=== PATIENT | female | born 1995 | race African-American/Black ===

== ENCOUNTER 2017-01-22 16:13 | Emergency (ER) | payer MEDICAID ==
[2017-01-22 17:04] LABS: AMORPHOUS SEDIMENT,URINE TRACE /HPF; APPEARANCE,URINE SLIGHTLY-CLOUDY; BILIRUBIN,URINE NEGATIVE (NEGATIVE); GLUCOSE, URINE NEGATIVE (NEGATIVE); KETONES,URINE 20 mg/dL (NEGATIVE); LEUKOCYTE ESTERASE,URINE NEGATIVE (NEGATIVE); NITRITE,URINE NEGATIVE (NEGATIVE); PROTEIN,URINE NEGATIVE (NEGATIVE); URINE SPECIFIC GRAVITY 1.015; UROBILINOGEN,URINE NEGATIVE mg/dL (<2.0)
--- NOTE | 2017-01-22 17:33 | RADIOLOGY REPORT (SQ) ---
EXAM DESCRIPTION: FOREARM LEFT COMPLETED DATE/TIME: 01/22/2017 5:05 pm REASON FOR STUDY: fell off roof/pain COMPARISON: None. NUMBER OF VIEWS: Two views. TECHNIQUE: Two radiographic images acquired of the left forearm, including elbow and wrist in at [address] one projection. LIMITATIONS: None. FINDINGS: MINERALIZATION: Normal. BONES: No acute fracture. No worrisome bone lesions. SOFT TISSUES: No obvious swelling or foreign body. OTHER: No other significant finding. IMPRESSION: NEGATIVE STUDY OF THE LEFT FOREARM. NO RADIOGRAPHIC EVIDENCE OF ACUTE INJURY. TECHNICAL DOCUMENTATION: JOB ID: [id number] [email or web address]- All Rights Reserved
--- NOTE | 2017-01-22 17:34 | RADIOLOGY REPORT (SQ) ---
EXAM DESCRIPTION: T SPINE AP/LAT COMPLETED DATE/TIME: 01/22/2017 5:05 pm REASON FOR STUDY: fell off roof/pain COMPARISON: None. NUMBER OF VIEWS: Two views. TECHNIQUE: AP and lateral radiographic images acquired of the thoracic spine. LIMITATIONS: None. FINDINGS: MINERALIZATION: Normal. ALIGNMENT: Normal. No scoliosis. VERTEBRAE: No fracture or bone lesion. Maintained height, normal segmentation. DISCS: No significant loss of height or significant narrowing. No large osteophytes. HARDWARE: None in the spine. MEDIASTINUM AND SOFT TISSUES: There is no abnormal paraspinous soft tissue swelling. VISUALIZED LUNG PERKINS: Clear. OTHER: Included ribs are normal IMPRESSION: NO SIGNIFICANT RADIOGRAPHIC FINDING IN THE THORACIC SPINE. TECHNICAL DOCUMENTATION: JOB ID: [id number] [employer]- All Rights Reserved
--- NOTE | 2017-01-22 17:35 | RADIOLOGY REPORT (SQ) ---
EXAM DESCRIPTION: CERV SP 3 VIEW OR LESS COMPLETED DATE/TIME: 01/22/2017 5:05 pm REASON FOR STUDY: fell off roof/pain COMPARISON: None. NUMBER OF VIEWS: Three views. TECHNIQUE: AP, lateral and odontoid radiographic images acquired of the cervical spine. LIMITATIONS: None. FINDINGS: MINERALIZATION: Normal. ALIGNMENT: There is straightening of the cervical spine. VERTEBRAE: Vertebral bodies of normal height. DISCS: No significant disc space narrowing. No large osteophytes. HARDWARE: None in the spine. SOFT TISSUES: No masses or calcifications. Lung apices clear. OTHER: No other significant finding. IMPRESSION: There is straightening of the cervical spine. This may be positional. This could indic ate muscle spasm. TECHNICAL DOCUMENTATION: JOB ID: [id number] [employer]- All Rights Reserved
[2017-01-22 17:44] VITALS: BP 135/77
--- NOTE | 2017-01-22 17:46 | ER Document Report ---
ED General - General Chief Complaint: Arm Injury Stated Complaint: FALL/HEAD,BACK AND ARM PAIN Time Seen by Provider: 01/22/17 16:36 Notes: Patient states she fell off of a one-story roof about 2 hours before arrival. Planes of neck pain upper back pain and left forearm pain. She states she landed on her left side. She states the pain is constant and moderate to severe. It is worse with movement and better with rest. The pain in her neck and back to radiate down into the low back. She denies any loss of phosphorus. No abdominal pain or chest pain. She has had no vomiting. She did not believe that she is currently . TRAVEL OUTSIDE OF THE [place] IN LAST 30 DAYS: No - Related Data Allergies/Adverse Reactions: No Known Allergies Allergy (Verified 06/14/16 15:55) Past Medical History - General Information source: Patient - Social History Smoking Status: Current Some Day Smoker Chew tobacco use (# tins/day): No Frequency of alcohol use: None Drug Abuse: None Family History: Reviewed & Not Pertinent Pulmonary Medical History: Reports: Hx Asthma Past Surgical History: Reports: Hx Orthopedic Surgery - knee, Hx Tonsillectomy - Immunizations Immunizations up to date: Yes Hx Diphtheria, Pertussis, Tetanus Vaccination: Yes Review of Systems - Review of Systems Constitutional: denies: Chills, Fever Cardiovascular: denies: Chest pain, Palpitations Respiratory: denies: Cough, Short of breath Gastrointestinal: denies: Abdominal pain, Vomiting -: Yes All other systems reviewed and negative Physical Exam - Vital signs Vitals: Temp Pulse Resp BP Pulse Ox 97.5 F 75 19 138/93 H 100 01/22/17 16:36 01/22/17 16:36 01/22/17 16:36 01/22/17 16:36 01/22/17 16:36 Interpretation: Hypertensive - General General appearance: Appears well, Alert In distress: None - HEENT Head: Normocephalic, Atraumatic Eyes: Normal Conjunctiva: Normal Pupils: PERRL Ears: Normal External canal: Normal Tympanic membrane: Normal Nasal: Normal. No: Bloody discharge Mouth/Lips: Normal Mucous membranes: Moist Pharynx: Normal. No: Erythema, Exudate Neck: Other - Since posterior C-spine is diffusely tender to palpation. - Respiratory Respiratory status: No respiratory distress Chest status: Nontender Breath sounds: Normal Chest palpation: Normal - Cardiovascular Rhythm: Regular Heart sounds: Normal auscultation Murmur: No - Abdominal Inspection: Normal Distension: No distension Bowel sounds: Normal Tenderness: Nontender Organomegaly: No organomegaly - Back Back: Tender - pt has diffuse upper T-spine tenderness to palpation. No step- off or deformity. - Extremities General upper extremity: Normal inspection General lower extremity: Normal inspection, Nontender Forearm: Tender Wrist: Tender, Limited ROM - Neurological Neuro grossly intact: Yes Cognition: Normal Orientation: AAOx4 Speech: Normal - Psychological Associated symptoms: Normal affect, Normal mood - Skin Skin Temperature: Warm Skin Moisture: Dry Skin Color: Normal Course - Vital Signs Vital signs: Temp Pulse Resp BP Pulse Ox 97.5 F 75 19 138/93 H 100 01/22/17 16:36 01/22/17 16:36 01/22/17 16:36 01/22/17 16:36 01/22/17 16:36 - Laboratory Laboratory results interpreted by me: 01/22/17 16:46 Urine Ketones 20 H - Diagnostic Test Radiology reviewed: Pending, Image reviewed, Reports reviewed Discharge - Discharge Clinical Impression: Cervical strain, acute, Acute thoracic myofascial strain Condition: Stable Disposition: HOME, SELF-CARE Instructions: Muscle Strain ([facility]), Neck Injury (Cervical Strain) ([facility]), Upper Back Strain ([facility]) Additional Instructions: Please call Dr. Arriaga as soon as possible to arrange reevaluation. Prescriptions: Hydrocodone/Acetaminophen [[place] 5-325 mg Tablet] 1 tab PO QID PRN #10 tablet PRN Reason: Forms: Elevated Blood Pressure Referrals: ROBBIE ARRIAGA MD [ACTIVE STAFF] - Follow up as needed
== END 2017-01-22 18:00 | disposition home or self-care (01) ==
LOC: ER 16:13
DX: S16.1XXA Strain of muscle, fascia and tendon at neck level, initial encounter (principal); S29.012A Strain of muscle and tendon of back wall of thorax, initial encounter; W17.89XA Other fall from one level to another, initial encounter; F17.200 Nicotine dependence, unspecified, uncomplicated; M79.632 Pain in left forearm
CPT/HCPCS: 99284; 81025; 81001; 72040; 73090; 72070; L0120 ×2; L3908

== ENCOUNTER → 2017-12-03 | Outpatient (CLI) | payer MEDICAID ==
[2017-12-03 17:47] LABS: BACTERIA (WET MOUNT) 4+ BACTERIA SEEN; RBCS (WET MOUNT) 4+ RBCS SEEN; T.VAGINALIS (WET MOUNT) NO TRICHOMONAS SEEN; WBCS (WET MOUNT) RARE WBCS SEEN; YEAST (WET MOUNT) NO YEAST SEEN
[2017-12-03 19:08] LABS: CHLAM PCR NOT DETECTED (NOT DETECT); GON PCR NOT DETECTED (NOT DETECT)
== END ==
LOC: LAB 17:19
PROVIDERS: ATTEND Nurse Practitioner Family
DX: N89.8 Other specified noninflammatory disorders of vagina (principal); R30.0 Dysuria
CPT/HCPCS: 87086; 87088; 87186; 87210; 87491; 87591

== ENCOUNTER 2017-12-26 19:46 | Emergency (ER) | payer MEDICAID ==
--- NOTE | 2017-12-26 20:21 | ER Document Report ---
ED Medical Screen (RME) - General Chief Complaint: Abdominal Cramping Stated Complaint: ABDOMINAL PAIN Time Seen by Provider: 12/26/17 20:18 Mode of Arrival: Ambulatory Information source: Patient Notes: PT C/O ABDOMINAL PAIN FOR 2 WEEKS, THOUGHT HER MENSES WOULD START, IT DIDN'T. WORRIED , SEXUALLY ACTIVE, ONE PARTNER, NO CONTROL. . C/O NAUSEATED, DIZZY. NO HOME TEST TAKEN. ALSO C/O VAGINAL AREA IRRITATED , NO DYSURIA, REPORTS VAGINAL DISCHARGE, RECENT BV. TRAVEL OUTSIDE OF THE [place] IN LAST 30 DAYS: No - Related Data Allergies/Adverse Reactions: No Known Allergies Allergy (Verified 06/14/16 15:55) Past Medical History Pulmonary Medical History: Reports: Hx Asthma Past Surgical History: Reports: Hx Orthopedic Surgery - knee, Hx Tonsillectomy - Immunizations Immunizations up to date: Yes Hx Diphtheria, Pertussis, Tetanus Vaccination: Yes Physical Exam - Vital signs Vitals: Temp Pulse Resp BP Pulse Ox 98.7 F 87 20 118/61 100 12/26/17 20:05 12/26/17 20:05 12/26/17 20:05 12/26/17 20:05 12/26/17 20:05 Course - Vital Signs Vital signs: Temp Pulse Resp BP Pulse Ox 98.7 F 87 20 118/61 100 12/26/17 20:05 12/26/17 20:05 12/26/17 20:05 12/26/17 20:05 12/26/17 20:05 Doctor's Discharge - Discharge Referrals: VIK SYED [email or web address] [Primary Care Provider] - Follow up as needed
[2017-12-26 21:06] LABS: APPEARANCE,URINE CLEAR; BILIRUBIN,URINE NEGATIVE (NEGATIVE); COLOR,URINE STRAW; GLUCOSE, URINE NEGATIVE (NEGATIVE); KETONES,URINE NEGATIVE (NEGATIVE); LEUKOCYTE ESTERASE,URINE NEGATIVE (NEGATIVE); NITRITE,URINE NEGATIVE (NEGATIVE); PROTEIN,URINE NEGATIVE (NEGATIVE); URINE SPECIFIC GRAVITY 1.008; UROBILINOGEN,URINE NEGATIVE mg/dL (<2.0)
[2017-12-26 21:48] LABS: ABSOLUTE EOSINOPHILS # (AUTO) 0.1 10^3/uL (0.0-0.6); ABSOLUTE LYMPHOCYTES (AUTO) 3.1 10^3/uL (0.5-4.7); ABSOLUTE MONOCYTES (AUTO) 0.8 10^3/uL (0.1-1.4); ABSOLUTE NEUT (AUTO) 6.5 10^3/uL (1.7-8.2); BASOPHILS % (AUTO) 0.2 % (0-2); EOSINOPHILS % (AUTO) 0.8 % (0-6); HEMATOCRIT 39.2 % (36.0-47.0); HEMOGLOBIN 13.1 g/dL (12.0-15.5); LYMPHOCYTES % (AUTO) 29.8 % (13-45); MEAN CORPUSCULAR HEMOGLOBIN 28.7 pg (27.0-33.4); MEAN CORPUSCULAR HGB CONC 33.4 g/dL (32.0-36.0); MEAN CORPUSCULAR VOLUME 86 fl (80-97); MONOCYTES % (AUTO) 7.3 % (3-13); PLATELET COUNT 272 10^3/uL (150-450); RED BLOOD COUNT 4.56 10^6/uL (3.72-5.28); RED CELL DISTRIBUTION WIDTH 13.4 % (11.5-14.0); SEGMENTED NEUTROPHILS % (AUTO) 61.9 % (42-78); TOTAL CELLS COUNTED % (AUTO) 100 %; WHITE BLOOD COUNT 10.4 10^3/uL (4.0-10.5)
[2017-12-26 21:57] LABS: ALANINE AMINOTRANSFERASE 20 U/L (9-52); ALBUMIN 4.3 g/dL (3.5-5.0); ALKALINE PHOSPHATASE 54 U/L (38-126); ANION GAP 9 (5-19); ASPARTATE AMINO TRANSFERASE 19 U/L (14-36); BILIRUBIN,DIRECT 0.3 mg/dL (0.0-0.4); BILIRUBIN,TOTAL 0.3 mg/dL (0.2-1.3); BLOOD UREA NITROGEN 14 mg/dL (7-20); CALCIUM 9.6 mg/dL (8.4-10.2); CARBON DIOXIDE 27 mmol/L (22-30); CHLORIDE 106 mmol/L (98-107); GLUCOSE 78 mg/dL (75-110); POTASSIUM 4.4 mmol/L (3.6-5.0); SODIUM 141.7 mmol/L (137-145); TOTAL PROTEIN 7.6 g/dL (6.3-8.2)
[2017-12-26 22:30] LABS: CHLAM PCR NOT DETECTED (NOT DETECT); GON PCR NOT DETECTED (NOT DETECT)
--- NOTE | 2017-12-26 23:28 | ER Document Report ---
ED GI/ - General Chief Complaint: Abdominal Cramping Stated Complaint: ABDOMINAL PAIN Time Seen by Provider: 12/26/17 20:18 Mode of Arrival: Ambulatory Notes: The patient is a 22-year-old female who presents with several weeks of lower abdominal cramping and she is two weeks late for her period. She is also having vaginal irritation and some nausea. She is concerned she is , but did not take a home test. She finished a course of Flagyl for bacterial vaginosis last month. She denies diarrhea, constipation, fevers, dysuria or vomiting. TRAVEL OUTSIDE OF THE [place] IN LAST 30 DAYS: No - Related Data Allergies/Adverse Reactions: No Known Allergies Allergy (Verified 06/14/16 15:55) Past Medical History - General Information source: Patient - Social History Smoking Status: Unknown if Ever Smoked Family History: Reviewed & Not Pertinent Pulmonary Medical History: Reports: Hx Asthma Past Surgical History: Reports: Hx Orthopedic Surgery - knee, Hx Tonsillectomy - Immunizations Immunizations up to date: Yes Hx Diphtheria, Pertussis, Tetanus Vaccination: Yes Review of Systems - Review of Systems Notes: REVIEW OF SYSTEMS: CONSTITUTIONAL: -fevers, -chills EENT: -eye pain, -difficulty swallowing, -nasal congestion CARDIOVASCULAR: -chest pain, -syncope. RESPIRATORY: -cough, -SOB GASTROINTESTINAL: +lower abdominal cramping, +nausea, -vomiting, -diarrhea GENITOURINARY: +vaginal irritation, -dysuria, -hematuria MUSCULOSKELETAL: -back pain, -neck pain SKIN: -rash or skin lesions. HEMATOLOGIC: -easy bruising or bleeding. LYMPHATIC: -swollen, enlarged glands. NEUROLOGICAL: -altered mental status or loss of consciousness, -headache, - neurologic symptoms PSYCHIATRIC: -anxiety, -depression. ALL OTHER SYSTEMS REVIEWED AND NEGATIVE. Physical Exam - Vital signs Vitals: Temp Pulse Resp BP Pulse Ox 98.7 F 87 20 118/61 100 12/26/17 20:05 12/26/17 20:05 12/26/17 20:05 12/26/17 20:05 12/26/17 20:05 - Notes Notes: PHYSICAL EXAMINATION: GENERAL: Well-appearing, well-nourished and in no acute distress. HEAD: Atraumatic, normocephalic. EYES: Pupils equal round and reactive to light, extraocular movements intact, sclera anicteric, conjunctiva are normal. ENT: nares patent, oropharynx clear without exudates. Moist mucous membranes. NECK: Normal range of motion, supple without lymphadenopathy LUNGS: Breath sounds clear to auscultation bilaterally and equal. No wheezes rales or rhonchi. HEART: Regular rate and rhythm without murmurs ABDOMEN: Soft, nontender, normoactive bowel sounds. No guarding, no rebound. No masses appreciated. (Chaperoned by SANDIE Alba): Non-tender uterus and adnexa. Small amount of whitish discharge. No CMT. EXTREMITIES: Normal range of motion, no pitting or edema. No cyanosis. NEUROLOGICAL: Cranial nerves grossly intact. Normal speech, normal gait. Normal sensory and motor exams. PSYCH: Normal mood, normal affect. SKIN: Warm, Dry, normal turgor, no rashes or lesions noted. Course - Re-evaluation Re-evalutation: Patient appears very well and has absolutely no tenderness on abdominal exam or pelvic exam. She does have bacterial vaginosis on wet mount and will treat her with Flagyl. She is not . Instructed her follow-up with her [employer] ATTENDANT. Also told her to always use condoms. - Vital Signs Vital signs: Temp Pulse Resp BP Pulse Ox 98.7 F 87 20 118/61 100 12/26/17 20:05 12/26/17 20:05 12/26/17 20:05 12/26/17 20:05 12/26/17 20:05 - Laboratory Result Diagrams: 12/26/17 21:18 12/26/17 21:18 Discharge - Discharge Clinical Impression: Bacterial vaginosis Condition: Stable Disposition: HOME, SELF-CARE Additional Instructions: Vaginosis, Bacterial Your exam shows you have bacterial vaginosis. This condition is due to an overgrowth of bacteria in the vagina. Symptoms may include vaginal itching or pain, a smelly discharge, and sometimes burning with urination. Normally this is not transmitted by sexual contact. Vaginosis can be treated with oral or topical antibiotics. Metronidazole ( Flagyl) pills are usually effective. Topical vaginal creams include Cleocin and Metro-Gel. You should avoid sexual contact until your symptoms are all better. Call the doctor if you develop pelvic pain, fever, or problems with urination, or if you don't improve as expected. Prescriptions: Metronidazole [Flagyl 500 mg Tablet] 500 mg PO Q8H #21 tablet Referrals: VIK SYED FNP-C [NURSE PRACTITIONER] - Follow up as needed NELSY CUNNINGHAM MD [[facility]] - Follow up as needed
[2017-12-26] MEDS ORDERED: FLUCONAZOLE 100 MG TABLET PO ONE (23:49)
[2017-12-27 00:02] LABS: BACTERIA (WET MOUNT) 4+ BACTERIA SEEN; EPITHELIALS (WET MOUNT) 4+ EPITHELIALS SEEN; RBCS (WET MOUNT) NO RBCS SEEN; T.VAGINALIS (WET MOUNT) NO TRICHOMONAS SEEN; WBCS (WET MOUNT) RARE WBCS SEEN; YEAST (WET MOUNT) NO YEAST SEEN
[2017-12-27] MEDS ORDERED: METRONIDAZOLE 500 MG TABLET PO ONE (00:14)
[2017-12-27 01:06] VITALS: BP 118/78
== END 2017-12-27 01:06 | disposition home or self-care (01) ==
LOC: ER 19:46
DX: N76.0 Acute vaginitis (principal); B96.89 Other specified bacterial agents as the cause of diseases classified elsewhere; R10.30 Lower abdominal pain, unspecified; R11.0 Nausea; J45.909 Unspecified asthma, uncomplicated
CPT/HCPCS: 99284; 36415; 87210; 84703; 85025; 81025; 80053; 81001; 87491; 87591; J3490 ×2

== ENCOUNTER 2018-03-30 09:19 | Emergency (ER) | payer MEDICAID ==
--- NOTE | 2018-03-30 09:56 | ER Document Report ---
ED Medical Screen (RME) - General Chief Complaint: Vaginal Bleeding Stated Complaint: PELVIC CRAMPING Time Seen by Provider: 03/30/18 09:51 Mode of Arrival: Ambulatory Notes: 22-year-old female at approximately 8 weeks per last menstrual period which was January 31, 2018 presents with complaint of abdominal pain, vaginal bleeding that started 1 day prior to arrival. Patient has associated nausea and vomiting. She has not been seen by OB yet. Patient does state that she had been diagnosed with bacterial vaginosis and taken Flagyl recently. Patient reports 3+ home test. I have greeted and performed a rapid initial assessment of this patient. A comprehensive ED assessment and evaluation of the patient, analysis of test results and completion of medical decision making process we will be contacted by additional ED providers. PHYSICAL EXAMINATION: Vital signs reviewed GENERAL: Well-appearing, well-nourished and in no acute distress. LUNGS: No respiratory distress Musculoskeletal: Normal range of motion NEUROLOGICAL: Normal speech, normal gait. PSYCH: Normal mood, normal affect. SKIN: Warm, Dry, normal turgor, no rashes or lesions noted. TRAVEL OUTSIDE OF THE [place] IN LAST 30 DAYS: No - HPI Onset: Yesterday Onset/Duration: Gradual, Persistent, Worse Quality of pain: Cramping Severity: Moderate Associated Symptoms: Abdominal pain, Nausea, Vaginal bleeding, Vomiting Exacerbated by: Denies Relieved by: Denies Similar symptoms previously: No Recently seen / treated by doctor: No - Related Data Smoking: Non-smoker Frequency of alcohol use: None Drug Abuse: None Allergies/Adverse Reactions: No Known Allergies Allergy (Verified 03/30/18 09:25) Past Medical History Pulmonary Medical History: Reports: Hx Asthma Renal/ Medical History: Denies: Hx Peritoneal Dialysis Past Surgical History: Reports: Hx Orthopedic Surgery - knee, Hx Tonsillectomy - Immunizations Immunizations up to date: Yes Hx Diphtheria, Pertussis, Tetanus Vaccination: Yes Physical Exam - Vital signs Vitals: Temp Pulse Resp BP Pulse Ox 98.8 F 86 18 123/60 99 03/30/18 09:26 03/30/18 09:26 03/30/18 09:26 03/30/18 09:26 03/30/18 09:26 Course - Vital Signs Vital signs: Temp Pulse Resp BP Pulse Ox 98.8 F 86 18 123/60 99 03/30/18 09:26 03/30/18 09:26 03/30/18 09:26 03/30/18 09:26 03/30/18 09:26
[2018-03-30 10:27] LABS: ABSOLUTE EOSINOPHILS # (AUTO) 0.1 10^3/uL (0.0-0.6); ABSOLUTE LYMPHOCYTES (AUTO) 1.9 10^3/uL (0.5-4.7); ABSOLUTE MONOCYTES (AUTO) 0.6 10^3/uL (0.1-1.4); ABSOLUTE NEUT (AUTO) 7.3 10^3/uL (1.7-8.2); BASOPHILS % (AUTO) 0.3 % (0-2); EOSINOPHILS % (AUTO) 0.6 % (0-6); HEMATOCRIT 37.7 % (36.0-47.0); HEMOGLOBIN 12.7 g/dL (12.0-15.5); MEAN CORPUSCULAR HEMOGLOBIN 28.8 pg (27.0-33.4); MEAN CORPUSCULAR HGB CONC 33.7 g/dL (32.0-36.0); MEAN CORPUSCULAR VOLUME 86 fl (80-97); MONOCYTES % (AUTO) 6.5 % (3-13); PLATELET COUNT 276 10^3/uL (150-450); RED BLOOD COUNT 4.41 10^6/uL (3.72-5.28); RED CELL DISTRIBUTION WIDTH 12.3 % (11.5-14.0); SEGMENTED NEUTROPHILS % (AUTO) 73.6 % (42-78); TOTAL CELLS COUNTED % (AUTO) 100 %; WHITE BLOOD COUNT 9.9 10^3/uL (4.0-10.5)
[2018-03-30 11:11] LABS: APPEARANCE,URINE CLOUDY; BILIRUBIN,URINE NEGATIVE (NEGATIVE); COLOR,URINE YELLOW; GLUCOSE, URINE NEGATIVE (NEGATIVE); KETONES,URINE NEGATIVE (NEGATIVE); LEUKOCYTE ESTERASE,URINE SMALL (NEGATIVE); NITRITE,URINE NEGATIVE (NEGATIVE); PROTEIN,URINE NEGATIVE (NEGATIVE); URINE SPECIFIC GRAVITY 1.023
[2018-03-30] MEDS ORDERED: ONDANSETRON 4 MG TAB.RAPDIS PO ONE (11:47)
[2018-03-30] MEDS ORDERED: ACETAMINOPHEN 325 MG TABLET PO ONE (11:47)
[2018-03-30 12:11] LABS: CHLAM PCR NOT DETECTED (NOT DETECT); GON PCR NOT DETECTED (NOT DETECT)
[2018-03-30 12:20] LABS: BACTERIA (WET MOUNT) 4+ BACTERIA SEEN; EPITHELIALS (WET MOUNT) 4+ EPITHELIALS SEEN; T.VAGINALIS (WET MOUNT) NO TRICHOMONAS SEEN; WBCS (WET MOUNT) RARE WBCS SEEN; YEAST (WET MOUNT) NO YEAST SEEN
--- NOTE | 2018-03-30 14:24 | RADIOLOGY REPORT (SQ) ---
EXAM DESCRIPTION: U/S OB TRANSVAGINAL W/O DOP COMPLETED DATE/TIME: 03/30/2018 2:03 pm REASON FOR STUDY: +, vaginal bleeding COMPARISON: None. TECHNIQUE: Transvaginal static and realtime grayscale images acquired of the pelvis. Additional tennille cted spectral and color Doppler images recorded. All images stored on PACs. [email or web address] CLINICAL DATES: LEONCIO: 11/07/2018 EGA: 8 weeks 2 days LIMITATIONS: None. FINDINGS: FETUS: Single Living intrauterine . ULTRASOUND EGA: 7 weeks 3 days ULTRASOUND LEONCIO: 11/13/2018 EFW: Not applicable less than 20 weeks CRL: 1.2 cm FHR: 155 beats per minute. SURVEY: No visualized anomalies AMNIOTIC FLUID: Adequate amount PLACENTA: Not yet developed due to early gestation SUBCHORIONIC BLEED: Yes. Small anechoic area measures 0.7 cm x 0.5 cm. UTERUS: The uterus measures 8.7 cm x 5.5 cm No masses. No anomalies. CERVICAL LENGTH: 3.2 cm. Closed. RIGHT ADNEXA: The right ovary measures 3.6 x 2.2 x 3.6 cm. Normal ovary with normal vascular flow. No adnexal free fluid. No adnexal masses. LEFT ADNEXA: Not visualized. FREE FLUID: None. OTHER: No other significant finding. IMPRESSION: LIVING INTRAUTERINE . EGA 7 weeks 3 day Small subchorionic bleed suggested. Trimester of : First - 0 to 13 weeks. TECHNICAL DOCUMENTATION: JOB ID: [id number] [employer]- All Rights Reserved Reading location - IP/workstation name: [email or web address]
--- NOTE | 2018-03-30 15:21 | ER Document Report ---
ED GI/ - General Chief Complaint: Vaginal Bleeding Stated Complaint: PELVIC CRAMPING Time Seen by Provider: 03/30/18 09:51 Mode of Arrival: Ambulatory Notes: Patient presents with chief complaint of mild vaginal bleeding that she describes as spotting. Patient reports she is approximately 6-7 weeks . Patient also complains of recurrent bacterial vaginosis. Patient states that she does not want to finish the course of Flagyl that she is currently on as she feels that it will not be safe for her . Patient reports of the last 6 months she has taken Flagyl multiple times but never finishes the course. Patient denies any fever, reports mild lower abdominal cramping. TRAVEL OUTSIDE OF THE [place] IN LAST 30 DAYS: No - Related Data Allergies/Adverse Reactions: No Known Allergies Allergy (Verified 03/30/18 09:56) Past Medical History - General Last Menstrual Period: 01/31/2018 - Social History Smoking Status: Former Smoker Chew tobacco use (# tins/day): No Frequency of alcohol use: None Drug Abuse: None Family History: Reviewed & Not Pertinent Patient has suicidal ideation: No Patient has homicidal ideation: No Pulmonary Medical History: Reports: Hx Asthma Renal/ Medical History: Denies: Hx Peritoneal Dialysis Past Surgical History: Reports: Hx Orthopedic Surgery - knee, Hx Tonsillectomy - Immunizations Immunizations up to date: Yes Hx Diphtheria, Pertussis, Tetanus Vaccination: Yes Physical Exam - Vital signs Vitals: Temp Pulse Resp BP Pulse Ox 98.8 F 86 18 123/60 99 03/30/18 09:26 03/30/18 09:26 03/30/18 09:26 03/30/18 09:26 03/30/18 09:26 - Notes Notes: PHYSICAL EXAMINATION: GENERAL: Well-appearing, well-nourished and in no acute distress. HEAD: Atraumatic, normocephalic. EYES: Pupils equal round and reactive to light, extraocular movements intact, conjunctiva are normal. ENT: Nares patent, oropharynx clear without exudates. Moist mucous membranes. NECK: Normal range of motion, supple without lymphadenopathy LUNGS: Breath sounds clear to auscultation bilaterally and equal. No wheezes rales or rhonchi. HEART: Regular rate and rhythm without murmurs ABDOMEN: Soft, nontender, nondistended abdomen. No guarding, no rebound. No masses appreciated. Female : No CVA tenderness. Vaginal speculum exam with thick white discharge from the cervical office. No cervical motion tenderness, no adnexal tenderness. Musculoskeletal: Normal range of motion, no pitting or edema. No cyanosis. NEUROLOGICAL: Cranial nerves grossly intact. Normal speech, normal gait. Normal sensory, motor exams PSYCH: Normal mood, normal affect. SKIN: Warm, Dry, normal turgor, no rashes or lesions noted. Course - Re-evaluation Re-evalutation: Patient is Rh+ on [facility] records so that will not be repeated today. Speculum exam was done, specimen sent down to lab. Patient will be sent for transvaginal ultrasound. Transvaginal ultrasound shows living intrauterine , small subchorionic bleed is noted. Wet mount with 4+ bacteria. Patient will be treated with intravaginal clindamycin for bacterial vaginosis. Patient will follow up with [facility] for repeat quantatative hcg and repeat ultrasound. - Vital Signs Vital signs: Temp Pulse Resp BP Pulse Ox 98.3 F 97 16 116/58 L 95 03/30/18 15:46 03/30/18 15:46 03/30/18 15:46 03/30/18 15:46 03/30/18 15:46 - Laboratory Result Diagrams: 03/30/18 10:10 Laboratory results interpreted by me: 03/30/18 03/30/18 10:10 10:50 Beta HCG, Quant 02944.00 H Urine Urobilinogen 2.0 H Ur Leukocyte Esterase SMALL H Discharge - Discharge Clinical Impression: Vaginal bleeding Condition: Stable Disposition: HOME, SELF-CARE Additional Instructions: Vaginal Bleeding You are having an episode of abnormal bleeding. Causes of abnormal vaginal bleeding can include miscarriage or tubal , tumors such as cancer or benign fibroids, medication effects, or hormone imbalance. Testing can eliminate unsuspected , tumors, or infection as a cause. "Dysfunctional uterine bleeding" is due to hormone imbalance, and is especially common at times when the normal cycle is disturbed -- whether by recent , use of control pills or hormones, or impending menopause. If the bleeding is innocent, most commonly a short course of hormones is given to restore the uterus to normal. Sometimes, the normal menstrual cycle corrects itself naturally. Sometimes , brief hormone therapy, or even a D&C is required. Your physician will advise you. Treatment for anemia may be required if bleeding is severe. You should rest and avoid intercourse until the bleeding is controlled. Call the doctor or return for re-examination if you feel faint, have increasing pain, or have a major increase in the amount of bleeding. Vaginosis, Bacterial Your exam shows you have bacterial vaginosis. This condition is due to an overgrowth of bacteria in the vagina. Symptoms may include vaginal itching or pain, a smelly discharge, and sometimes burning with urination. Normally this is not transmitted by sexual contact. Vaginosis can be treated with oral or topical antibiotics. Metronidazole ( Flagyl) pills are usually effective. Topical vaginal creams include Cleocin and Metro-Gel. You should avoid sexual contact until your symptoms are all better. Call the doctor if you develop pelvic pain, fever, or problems with urination, or if you don't improve as expected. Your ultrasound today showed a living intrauterine of approximately 7 weeks. There is a small subchorionic bleed which is likely because of your vaginal bleeding. It is very important that you follow-up with your [facility] [employer] provider to have a repeat ultrasound done. I am enclosing the information for [facility]. Please return to the emergency department if you develop worsening of your bleeding or any other symptom that is concerning to you. Prescriptions: Clindamycin Phosphate [Clindamax Cream] 1 applic VG BID #20 appful Ondansetron [Zofran Odt 4 mg Tablet] 1 - 2 tab PO Q4H PRN #15 tab.rapdis PRN Reason: For Nausea/Vomiting Referrals: ROSALINA PERES MD [ACTIVE STAFF] - Follow up as needed
[2018-03-30 15:46] VITALS: BP 116/58
== END 2018-03-30 15:46 | disposition home or self-care (01) ==
LOC: ER 09:19
DX: O20.9 Hemorrhage in early pregnancy, unspecified (principal); O23.591 Infection of other part of genital tract in pregnancy, first trimester; B96.89 Other specified bacterial agents as the cause of diseases classified elsewhere; R10.2 Pelvic and perineal pain; Z3A.01 Less than 8 weeks gestation of pregnancy
CPT/HCPCS: 99284; 36415; 87210; 84702; 85025; 81001; 87491; 87591; 76817; J3490; S0119

== ENCOUNTER 2018-04-21 07:32 | Emergency (ER) | payer MEDICAID ==
--- NOTE | 2018-04-21 08:08 | ER Document Report ---
ED General - General Chief Complaint: Abdominal Pain Stated Complaint: HIP PAIN Time Seen by Provider: 04/21/18 07:57 Notes: 23-year-old female patient to the emergency department complaining of some discomfort in the lower abdomen as well as some bilateral hip pain in the muscle areas on the lateral aspects of both hips. Patient states that she is may be around 12 weeks. Denies any fever or chills. Has had intermittent vaginal bleeding for the last several weeks of the but has already been evaluated for that. Denies any chills. TRAVEL OUTSIDE OF THE [place] IN LAST 30 DAYS: No - HPI Onset/Duration: Gradual - Related Data Allergies/Adverse Reactions: No Known Allergies Allergy (Verified 04/21/18 07:36) Past Medical History - General Information source: Patient - Social History Smoking Status: Never Smoker Frequency of alcohol use: None Drug Abuse: None Lives with: Family Family History: Reviewed & Not Pertinent Pulmonary Medical History: Reports: Hx Asthma Renal/ Medical History: Denies: Hx Peritoneal Dialysis Past Surgical History: Reports: Hx Orthopedic Surgery - knee, Hx Tonsillectomy - Immunizations Immunizations up to date: Yes Hx Diphtheria, Pertussis, Tetanus Vaccination: Yes Review of Systems - Review of Systems Notes: Constitutional: denies: Chills, Diaphoresis, Fever, Malaise, Weakness EENT: denies: Eye discharge, Blurred vision, Tearing, Double vision, Nose congestion, Nose discharge, Throat swelling, Mouth pain Cardiovascular: denies: Palpitations, Heart racing, Orthopnea, Dyspnea, Chest pain Respiratory: denies: Cough, Hurts to breathe, Wheezing, Shortness of breath Gastrointestinal: denies: Diarrhea, Nausea, Vomiting, Black stools, bright red blood in stool. Does complain of abdominal pain Genitourinary: denies: Burning, Dysuria, Discharge, Frequency, Flank pain, Hematuria Musculoskeletal: denies: Joint pain, Joint swelling, Muscle pain, Muscle stiffness, back pain. Does complain of some bilateral lateral hip pain but no trauma Hematologic/Lymphatic: denies: Anemia, Easy bleeding, Easy bruising, Blood clots Neurological/Psychological: denies: Confusion, Dementia, Depression, Loss of consciousness Skin: No lesions, no masses, no skin breakdown, no abscesses Physical Exam - Vital signs Vitals: Temp Pulse Resp BP Pulse Ox 98.8 F 75 14 125/65 100 04/21/18 10:43 04/21/18 10:43 04/21/18 10:43 04/21/18 10:43 04/21/18 10:43 Interpretation: Normal - General General appearance: Appears well, Alert - HEENT Head: Normocephalic, Atraumatic Eyes: Normal Pupils: PERRL - Respiratory Respiratory status: No respiratory distress Chest status: Nontender Breath sounds: Normal Chest palpation: Normal - Cardiovascular Rhythm: Regular Heart sounds: Normal auscultation Murmur: No - Abdominal Inspection: Normal Distension: No distension Bowel sounds: Normal Tenderness: Nontender Organomegaly: No organomegaly - Back Back: Normal, Nontender - Extremities General upper extremity: Normal inspection, Nontender, Normal color, Normal ROM , Normal temperature General lower extremity: Normal inspection, Nontender, Normal color, Normal ROM , Normal temperature, Normal weight bearing. No: Wayne's sign - Neurological Neuro grossly intact: Yes Cognition: Normal Orientation: AAOx4 [place] Coma Scale Eye Opening: Spontaneous [place] Coma Scale Verbal: Oriented [place] Coma Scale Motor: Obeys Commands Juan David Coma Scale Total: 15 Speech: Normal Motor strength normal: LUE, RUE, LLE, RLE Sensory: Normal - Psychological Associated symptoms: Normal affect, Normal mood - Skin Skin Temperature: Warm Skin Moisture: Dry Skin Color: Normal Course - Re-evaluation Re-evalutation: 04/21/18 09:41 Bedside ultrasound performed. There is an intrauterine . heart tones 145. No abnormal pathology seen. Counseled patient. Will discharge shortly. Urine has been collected. 04/21/18 10:26 Laboratory 04/21/18 09:29 Urine Color YELLOW Urine Appearance CLOUDY Urine pH 7.0 Ur Specific [place] 1.009 Urine Protein NEGATIVE Urine Glucose (UA) NEGATIVE Urine Ketones NEGATIVE Urine Blood NEGATIVE Urine Nitrite POSITIVE H Urine Bilirubin NEGATIVE Urine Urobilinogen NEGATIVE Ur Leukocyte Esterase LARGE H Urine WBC (Auto) 11 Urine RBC (Auto) 1 Urine Bacteria (Auto) 3+ Squamous Epi Cells Auto 3 Amorphous Sediment Auto FEW Urine Mucus (Auto) 1+ Urine Ascorbic Acid NEGATIVE - Vital Signs Vital signs: Temp Pulse Resp BP Pulse Ox 98.8 F 75 14 125/65 100 04/21/18 10:43 04/21/18 10:43 04/21/18 10:43 04/21/18 10:43 04/21/18 10:43 - Laboratory Laboratory results interpreted by me: 04/21/18 09:29 Urine Nitrite POSITIVE H Ur Leukocyte Esterase LARGE H Discharge - Discharge Clinical Impression: Abdominal pain affecting , Hip pain, bilateral UTI (urinary tract infection) Qualifiers: Urinary tract infection type: site unspecified Hematuria presence: without hematuria Qualified Code(s): N39.0 - Urinary tract infection, site not specified Condition: Good Disposition: HOME, SELF-CARE Instructions: Abdominal Pain ([facility]), Pelvic Pain in ([facility]), Urinary Tract Infection ([facility]) Prescriptions: Nitrofurantoin/Nitrofuran Mac [Macrobid 100 mg Capsule] 1 tab PO BID #20 capsule Referrals: KRIS MICHELLE MD [ACTIVE STAFF] - Follow up in 3-5 days
[2018-04-21 10:01] LABS: APPEARANCE,URINE CLOUDY; BILIRUBIN,URINE NEGATIVE (NEGATIVE); COLOR,URINE YELLOW; GLUCOSE, URINE NEGATIVE (NEGATIVE); KETONES,URINE NEGATIVE (NEGATIVE); URINE SPECIFIC GRAVITY 1.009
[2018-04-21 10:02] LABS: LEUKOCYTE ESTERASE,URINE LARGE (NEGATIVE); NITRITE,URINE POSITIVE (NEGATIVE); PROTEIN,URINE NEGATIVE (NEGATIVE); UROBILINOGEN,URINE NEGATIVE mg/dL (<2.0)
[2018-04-21 10:04] LABS: AMORPHOUS SEDIMENT,URINE FEW /HPF
[2018-04-21 10:45] VITALS: BP 125/65
== END 2018-04-21 10:45 | disposition home or self-care (01) ==
LOC: ER 07:32
DX: O26.891 Other specified pregnancy related conditions, first trimester (principal); R10.30 Lower abdominal pain, unspecified; M25.551 Pain in right hip; M25.552 Pain in left hip; Z3A.12 12 weeks gestation of pregnancy
CPT/HCPCS: 81001; 87086; 87088; 87186; 99284

== ENCOUNTER 2018-09-13 16:16 | Emergency (ER) | payer MEDICAID ==
--- NOTE | 2018-09-13 17:48 | ER Document Report ---
ED Medical Screen (RME) - General Chief Complaint: Vag Bleeding, +preg <12wks Stated Complaint: VAGINAL BLEEDING/CRAMPING Time Seen by Provider: 09/13/18 17:43 Mode of Arrival: Ambulatory Information source: Patient Notes: Patient presents emergency department with complaints of abdominal pain, vaginal bleeding that started today. Reports she is gone through 1 pad in 1 hour. Reports her last menstrual period was August 01, 2018. . She reports she took 3 home test and they were all positive. She also complains of pain with intercourse for the past 2 weeks. She also complains of vaginal discharge before this bleeding. No complaints of fever vomiting diarrhea. I have greeted and performed a rapid initial assessment of this patient. A comprehensive ED assessment and evaluation of the patient, analysis of test results and completion of the medical decision making process will be conducted by additional ED providers. TRAVEL OUTSIDE OF THE [place] IN LAST 30 DAYS: No - Related Data Allergies/Adverse Reactions: No Known Allergies Allergy (Verified 04/21/18 07:36) Past Medical History Pulmonary Medical History: Reports: Hx Asthma Renal/ Medical History: Denies: Hx Peritoneal Dialysis Past Surgical History: Reports: Hx Orthopedic Surgery - knee, Hx Tonsillectomy - Immunizations Immunizations up to date: Yes Hx Diphtheria, Pertussis, Tetanus Vaccination: Yes Physical Exam - Vital signs Vitals: Temp Pulse Resp BP Pulse Ox 98.5 F 83 16 109/57 L 99 09/13/18 16:29 09/13/18 16:29 09/13/18 16:29 09/13/18 16:29 09/13/18 16:29 Course - Vital Signs Vital signs: Temp Pulse Resp BP Pulse Ox 98.5 F 83 16 109/57 L 99 09/13/18 16:29 09/13/18 16:29 09/13/18 16:29 09/13/18 16:29 09/13/18 16:29
[2018-09-13 18:44] LABS: ABSOLUTE BASOPHILS # (AUTO) 0.1 10^3/uL (0.0-0.2); ABSOLUTE EOSINOPHILS # (AUTO) 0.1 10^3/uL (0.0-0.6); ABSOLUTE LYMPHOCYTES (AUTO) 2.7 10^3/uL (0.5-4.7); ABSOLUTE MONOCYTES (AUTO) 0.8 10^3/uL (0.1-1.4); ABSOLUTE NEUT (AUTO) 7.6 10^3/uL (1.7-8.2); BASOPHILS % (AUTO) 0.5 % (0-2); EOSINOPHILS % (AUTO) 0.7 % (0-6); HEMATOCRIT 39.2 % (36.0-47.0); HEMOGLOBIN 13.1 g/dL (12.0-15.5); LYMPHOCYTES % (AUTO) 24.1 % (13-45); MEAN CORPUSCULAR HEMOGLOBIN 28.6 pg (27.0-33.4); MEAN CORPUSCULAR HGB CONC 33.5 g/dL (32.0-36.0); MEAN CORPUSCULAR VOLUME 85 fl (80-97); MONOCYTES % (AUTO) 6.8 % (3-13); PLATELET COUNT 270 10^3/uL (150-450); RED BLOOD COUNT 4.59 10^6/uL (3.72-5.28); RED CELL DISTRIBUTION WIDTH 13.4 % (11.5-14.0); SEGMENTED NEUTROPHILS % (AUTO) 67.9 % (42-78); TOTAL CELLS COUNTED % (AUTO) 100 %; WHITE BLOOD COUNT 11.3 10^3/uL (4.0-10.5)
[2018-09-13 18:58] LABS: APPEARANCE,URINE SLIGHTLY-CLOUDY; BILIRUBIN,URINE NEGATIVE (NEGATIVE); COLOR,URINE YELLOW; GLUCOSE, URINE NEGATIVE (NEGATIVE); KETONES,URINE NEGATIVE (NEGATIVE); LEUKOCYTE ESTERASE,URINE NEGATIVE (NEGATIVE); NITRITE,URINE NEGATIVE (NEGATIVE); PROTEIN,URINE NEGATIVE (NEGATIVE); URINE SPECIFIC GRAVITY 1.023; UROBILINOGEN,URINE NEGATIVE mg/dL (<2.0)
[2018-09-13 19:38] LABS: ALANINE AMINOTRANSFERASE 26 U/L (9-52); ALBUMIN 4.4 g/dL (3.5-5.0); ALKALINE PHOSPHATASE 61 U/L (38-126); ANION GAP 10 (5-19); ASPARTATE AMINO TRANSFERASE 17 U/L (14-36); BILIRUBIN,DIRECT 0.1 mg/dL (0.0-0.4); BILIRUBIN,TOTAL 0.3 mg/dL (0.2-1.3); BLOOD UREA NITROGEN 11 mg/dL (7-20); CALCIUM 9.9 mg/dL (8.4-10.2); CARBON DIOXIDE 26 mmol/L (22-30); CHLORIDE 104 mmol/L (98-107); GLUCOSE 90 mg/dL (75-110); POTASSIUM 3.8 mmol/L (3.6-5.0); SODIUM 140.2 mmol/L (137-145); TOTAL PROTEIN 7.6 g/dL (6.3-8.2)
--- NOTE | 2018-09-13 20:22 | RADIOLOGY REPORT (SQ) ---
EXAM DESCRIPTION: US TRANSVAGINAL COMPLETED DATE/TME: 09/13/2018 17:46 CLINICAL HISTORY: 23 years, Female, VAG BLEED PREG Findings: First trimester ultrasound HISTORY: Vaginal bleeding, . FINDINGS: Uterus is anteverted and measures 8.7 x 5.7 x 4.3 cm. Gestational sac is in place with crown-rump length measuring 3 mm, estimated gestational age is five weeks and six days. Right ovary measures 3.4 x 2.5 x 2.1 cm. No pelvic ascites. Cervix measures 2.5 cm in length. There is a hypoechoic region adjacent to the gestational sac which measures 1.0 cm which may represent subchorionic hemorrhage. pole does demonstrate a heart rate although exact heart rate could not be measured at this early age. IMPRESSION: Single viable early IUP of five weeks and six days. Probable small subchorionic hemorrhage.
--- NOTE | 2018-09-13 20:48 | ER Document Report ---
HPI - HPI Time Seen by Provider: 09/13/18 17:43 Pain Level: 2 Notes: Patient is an otherwise healthy 23-year-old female who presents the emergency room with chief complaint of vaginal bleeding during . Patient reports she is a . 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 Patient reports this morning she stuck her finger into her vagina and noticed some blood. She states that through the day she has continued to have vaginal bleeding, she describes the amount of bleeding as a light period. She reports that the blood was bright red and has now turned to dark red. - REPRODUCTIVE Reproductive: REPORTS: : - DERM Skin Color: Normal, [place] Past Medical History - General Information source: Patient - Social History Smoking Status: Unknown if Ever Smoked Family History: Reviewed & Not Pertinent Patient has suicidal ideation: No Patient has homicidal ideation: No Pulmonary Medical History: Reports: Hx Asthma Renal/ Medical History: Denies: Hx Peritoneal Dialysis Past Surgical History: Reports: Hx Orthopedic Surgery - knee, Hx Tonsillectomy - Immunizations Immunizations up to date: Yes Hx Diphtheria, Pertussis, Tetanus Vaccination: Yes Vertical Provider Document - CONSTITUTIONAL Notes: PHYSICAL EXAMINATION: GENERAL: Well-appearing, well-nourished and in no acute distress. HEAD: Atraumatic, normocephalic. EYES: Pupils equal round and reactive to light, extraocular movements intact, conjunctiva are normal. ENT: Nares patent, oropharynx clear without exudates. Moist mucous membranes. NECK: Normal range of motion, supple without lymphadenopathy LUNGS: Breath sounds clear to auscultation bilaterally and equal. No wheezes rales or rhonchi. HEART: Regular rate and rhythm without murmurs ABDOMEN: Soft, nontender, nondistended abdomen. No guarding, no rebound. No masses appreciated. Female : deferred Musculoskeletal: Normal range of motion, no pitting or edema. No cyanosis. NEUROLOGICAL: Cranial nerves grossly intact. Normal speech, normal gait. Normal sensory, motor exams PSYCH: Normal mood, normal affect. SKIN: Warm, Dry, normal turgor, no rashes or lesions noted. - INFECTION CONTROL TRAVEL OUTSIDE OF THE [place] IN LAST 30 DAYS: No Course - Re-evaluation Re-evalutation: Transvaginal ultrasound shows a living intrauterine . 11,314 [facility] [place]. Patient reports bleeding has now significantly slowed down and reports that it is now a brown spotting. Will have patient return to the outpatient lab for repeat quantitative hCG testing in 48 hours. Patient given strict ED return precautions. Patient's blood type is Rh+ on a previous visit so RhoGam is not indicated. - Vital Signs Vital signs: Temp Pulse Resp BP Pulse Ox 98.5 F 83 16 109/57 L 99 09/13/18 16:29 09/13/18 16:29 09/13/18 16:29 09/13/18 16:29 09/13/18 16:29 - Laboratory Result Diagrams: 09/13/18 18:28 09/13/18 18:28 Laboratory results interpreted by me: 09/13/18 09/13/18 09/13/18 18:28 18:28 18:28 WBC 11.3 H Beta HCG, Quant 81544.00 H Urine Blood SMALL H Discharge - Discharge Clinical Impression: Vaginal bleeding during Condition: Stable Disposition: HOME, SELF-CARE Additional Instructions: Threatened Miscarriage You have been evaluated for a possible miscarriage. At this time, there is no indication that a miscarriage will occur. Most women with your symptoms will go on to have a perfectly normal baby. However, careful observation will be necessary. A miscarriage occurs when the fetus is abnormal. There is no medicine or treatment for it. You should rest in bed until the symptoms have resolved. Do not douche or have sex for at least a week, or until OK'd by the doctor. Call the doctor or return for re-examination if there is an increase in bleeding or cramping, or passage of tissue. Please return to the hospital on to have your labs redrawn. You do not need to check into the emergency department please proceed directly to the outpatient lab. Pelvic rest until cleared by COKE LO[employer]ER. Return to the emergency department if you develop worsening bleeding, you are bleeding through more than 1 pad per hour for 4 hours consecutively, you pass out, you develop a fever or any other concerning symptom. Forms: Follow-Up Laboratory Testing [facility]: [facility] [Outside] - Follow up as needed
[2018-09-13 21:07] VITALS: BP 116/80
== END 2018-09-13 21:05 | disposition home or self-care (01) ==
LOC: ER 16:16
DX: O46.91 Antepartum hemorrhage, unspecified, first trimester (principal); O99.511 Diseases of the respiratory system complicating pregnancy, first trimester; Z3A.01 Less than 8 weeks gestation of pregnancy
CPT/HCPCS: 36415; 76817; 80053; 81001; 84702; 85025; 99284

== ENCOUNTER 2018-09-16 12:08 | Emergency (ER) | payer SELFPAY ==
--- NOTE | 2018-09-16 14:14 | ER Document Report ---
ED Medical Screen (RME) - General Chief Complaint: Vag Bleeding, +preg <12wks Stated Complaint: VAGINAL BLEEDING Time Seen by Provider: 09/16/18 13:57 Primary Care Provider: MARIN JEFF FNP [Primary Care Provider] - Follow up as needed Mode of Arrival: Ambulatory Information source: Patient TRAVEL OUTSIDE OF THE [place] IN LAST 30 DAYS: No - HPI Notes: 09/16/18 14:10 Patient seen in triage for RME exam. Patient is a 23-year-old with 3 previous spontaneous miscarriages, last one 6 months ago presents with report that she is 6 weeks 2 days based upon ultrasound performed 3 days ago which showed a small subchorionic hemorrhage. She states she was seen 3 days ago with mild bleeding that stopped and then last night the bleeding and some pelvic pain returned. She describes the crampy pain is slightly worse than her normal menstrual cycle, but now is improving. She reports the vaginal bleeding was equal to the heavy portion of a normal menstrual cycle. No recent intercourse or lifting. No back pain. No fever chills or cough or congestion no chest pain or constipation or diarrhea. On exam HEENT conjunctiva clear Cardiovascular regular rate and rhythm without appreciable murmurs gallops or rubs. Lungs clear to auscultation bilaterally. Abdomen is soft minimal suprapubic discomfort. No rebound or guarding. Back no CVA discomfort Extremities no edema. Review of old records shows ultrasound and beta hCG quantitative from 3 days ago. Patient is Rh+. Patient had urinalysis, did not have a pelvic exam or a GC your wet prep. Patient did not follow-up for pelvic exam with her REHABILITATION LIAISON, just returned here. Please see partner's note for continuation of care and evaluation. - Related Data Allergies/Adverse Reactions: No Known Allergies Allergy (Verified 04/21/18 07:36) Past Medical History Pulmonary Medical History: Reports: Hx Asthma Renal/ Medical History: Denies: Hx Peritoneal Dialysis Past Surgical History: Reports: Hx Orthopedic Surgery - knee, Hx Tonsillectomy - Immunizations Immunizations up to date: Yes Hx Diphtheria, Pertussis, Tetanus Vaccination: Yes Physical Exam - Vital signs Vitals: Temp Pulse Resp BP Pulse Ox 98.4 F 80 18 112/63 97 09/16/18 12:15 09/16/18 12:15 09/16/18 12:15 09/16/18 12:15 09/16/18 12:15 Course - Vital Signs Vital signs: Temp Pulse Resp BP Pulse Ox 98.4 F 80 18 112/63 97 09/16/18 12:15 09/16/18 12:15 09/16/18 12:15 09/16/18 12:15 09/16/18 12:15 Doctor's Discharge - Discharge Referrals: MARIN JEFF FNP [Primary Care Provider] - Follow up as needed
[2018-09-16 14:27] LABS: ABSOLUTE EOSINOPHILS # (AUTO) 0.1 10^3/uL (0.0-0.6); ABSOLUTE MONOCYTES (AUTO) 0.8 10^3/uL (0.1-1.4); ABSOLUTE NEUT (AUTO) 5.6 10^3/uL (1.7-8.2); BASOPHILS % (AUTO) 0.4 % (0-2); EOSINOPHILS % (AUTO) 0.8 % (0-6); HEMATOCRIT 39.5 % (36.0-47.0); HEMOGLOBIN 13.2 g/dL (12.0-15.5); LYMPHOCYTES % (AUTO) 23.9 % (13-45); MEAN CORPUSCULAR HEMOGLOBIN 28.6 pg (27.0-33.4); MEAN CORPUSCULAR HGB CONC 33.5 g/dL (32.0-36.0); MEAN CORPUSCULAR VOLUME 85 fl (80-97); MONOCYTES % (AUTO) 9.3 % (3-13); PLATELET COUNT 272 10^3/uL (150-450); RED BLOOD COUNT 4.62 10^6/uL (3.72-5.28); RED CELL DISTRIBUTION WIDTH 13.4 % (11.5-14.0); SEGMENTED NEUTROPHILS % (AUTO) 65.6 % (42-78); TOTAL CELLS COUNTED % (AUTO) 100 %; WHITE BLOOD COUNT 8.6 10^3/uL (4.0-10.5)
--- NOTE | 2018-09-16 15:21 | ER Document Report ---
ED General - General Chief Complaint: Vag Bleeding, +preg <12wks Stated Complaint: VAGINAL BLEEDING Time Seen by Provider: 09/16/18 13:57 Primary Care Provider: MARIN JEFF FNP [Primary Care Provider] - Follow up as needed Mode of Arrival: Ambulatory Information source: Patient TRAVEL OUTSIDE OF THE [place] IN LAST 30 DAYS: No - HPI Patient complains to provider of: Heavy bleeding, clots, tissue, early Onset: This morning Onset/Duration: Sudden Quality of pain: Cramping Severity: Mild Pain Level: 2 Associated symptoms: denies: Chills, Fever Exacerbated by: Denies Relieved by: Denies Similar symptoms previously: No Recently seen / treated by doctor: No Notes: 23-year-old female coming in today with pelvic cramping, vaginal bleeding, blood clots and tissue coming out. She is officially graft for with 3 spontaneous abortions in the past. Blood type is O+. Here to make sure she is not miscarrying. - Related Data Allergies/Adverse Reactions: No Known Allergies Allergy (Verified 04/21/18 07:36) Past Medical History - General Information source: Patient - Social History Smoking Status: Never Smoker Family History: Reviewed & Not Pertinent Patient has suicidal ideation: No Patient has homicidal ideation: No Pulmonary Medical History: Reports: Hx Asthma Renal/ Medical History: Denies: Hx Peritoneal Dialysis Past Surgical History: Reports: Hx Orthopedic Surgery - knee, Hx Tonsillectomy - Immunizations Immunizations up to date: Yes Hx Diphtheria, Pertussis, Tetanus Vaccination: Yes Review of Systems - Review of Systems Notes: Constitutional: No fevers. No chills. EENT: No eye redness. No eye pain. No ear pain. No sore throat. Cardiovascular: No chest pain. No palpitations. Respiratory: No cough. No shortness of breath. No respiratory distress. Gastrointestinal: No abdominal pain. No nausea, vomiting, or diarrhea. Genitourinary: Vaginal bleeding Musculoskeletal: Atraumatic. No swelling. No deformities. Skin: No rash or lesions. Lymphatic: No swollen lymph nodes. Neurologic: No headache. No syncope. Psychiatric: No suicidal or homicidal ideation. Physical Exam - Vital signs Vitals: Temp Pulse Resp BP Pulse Ox 98.4 F 80 18 112/63 97 09/16/18 12:15 09/16/18 12:15 09/16/18 12:15 09/16/18 12:15 09/16/18 12:15 - Notes Notes: General: Well-developed, well-nourished. In no acute distress. Non-toxic appearing. Cardiac: Well-perfused. Regular rate and rhythm. No murmurs, rubs, or gallops. Pulmonary: No respiratory distress. No cyanosis. Bilateral lung fiels are clear to auscultation. Abdominal: Non-distended. Non-rigid. Bowels sounds are present in all four quadrants. No guarding or rebound. HEENT: Head is atraumatic. Conjunctivae not reddened. No tearing. PERRL. EOMI. Orbits atraumatic. No periorbital swelling or erythema. Oropharynx is without erythema, swelling, or exudates. Neck: Supple. No adenopathy. No meningismus. Dermatologic: Warm with good turgor. No rash. Atraumatic. Chest: Atraumatic. No chest wall tenderness to palpation. Musculoskeletal: Moves all extremities well. No range of motion deficits. no muscular or joint tenderness. No paraspinal muscle tenderness. no midline spinal tenderness or step-off. Genitourinary: Exam deferred per patient request Neurologic: No gross neurologic deficits. Psychiatric: Normal mood. Course - Re-evaluation Re-evalutation: 09/16/18 19:05 There has been an interval increase in the patient's beta hCG. She still has a subchorionic hemorrhage and she still has a viable intrauterine . I told her to follow-up with the health department or with [facility] MACHINIST for further testing as needed. - Vital Signs Vital signs: Temp Pulse Resp BP Pulse Ox 98.2 F 75 18 115/60 96 09/16/18 15:54 09/16/18 15:54 09/16/18 15:54 09/16/18 15:54 09/16/18 15:54 - Laboratory Result Diagrams: 09/16/18 14:15 Laboratory results interpreted by me: 09/16/18 09/16/18 14:15 14:21 Beta HCG, Quant 99385.00 H Chlamydia DNA (PCR) DETECTED H - Diagnostic Test Radiology reviewed: Reports reviewed Discharge - Discharge Clinical Impression: Vaginal bleeding, Intrauterine Condition: Good Disposition: HOME, SELF-CARE Instructions: Vaginal Bleeding ([facility]), ([facility]) Additional Instructions: Suggest pelvic rest. No sexual activity until you have seen specialist. Drink plenty of fluids. No heavy lifting. Referrals: MARIN JEFF FNP [Primary Care Provider] - Follow up as needed BRENDEN WOODSON MD [ACTIVE STAFF] - Follow up in 3-5 days
[2018-09-16 16:37] LABS: CHLAM PCR DETECTED (NOT DETECT); GON PCR NOT DETECTED (NOT DETECT)
--- NOTE | 2018-09-16 18:34 | RADIOLOGY REPORT (SQ) ---
EXAM DESCRIPTION: U/S OB TRANSVAGINAL W/O DOP COMPLETED DATE/TIME: 09/16/2018 6:21 pm REASON FOR STUDY: worsening bleeding cramping in early COMPARISON: None. TECHNIQUE: Transvaginal static and realtime grayscale images acquired of the pelvis. Additional tennille cted spectral and color Doppler images recorded. All images stored on PACs. bHCG: Not available. CLINICAL DATES: 6 weeks 2 days LIMITATIONS: None. FINDINGS: FETUS: Single Living intrauterine . ULTRASOUND EGA: 6 weeks 1 day ULTRASOUND LEONCIO: 05/11/2019 EFW: Not applicable less than 20 weeks. CRL: 4.2 mm FHR: 127 beats per minute. SURVEY: No visualized anomalies. AMNIOTIC FLUID: Adequate amount. PLACENTA: Not yet developed due to early gestation. SUBCHORIONIC BLEED: Yes. SIZE OF BLEED: 1.1 x 1.1 cm. UTERUS: No masses. No anomalies. CERVICAL LENGTH: 2.7 cm and Closed. RIGHT ADNEXA: Normal ovary with normal vascular flow. No adnexal free fluid. No adnexal masses. LEFT ADNEXA: Normal ovary with normal vascular flow. No adnexal free fluid. No adnexal masses. FREE FLUID: None. OTHER: No other significant finding. IMPRESSION: LIVING INTRAUTERINE . EGA 6 weeks 1 day. Small subchoreonic hemorrhage. Trimester of : First - 0 to 13 weeks. TECHNICAL DOCUMENTATION: JOB ID: [id number] [employer]- All Rights Reserved rev-11/13 Reading location - IP/workstation name: [email or web address]
[2018-09-16 19:16] VITALS: BP 125/66
== END 2018-09-16 19:16 | disposition home or self-care (01) ==
LOC: ER 12:08
DX: O20.9 Hemorrhage in early pregnancy, unspecified (principal)
CPT/HCPCS: 36415; 76817; 84702; 85025; 87491; 87591; 99284

== ENCOUNTER 2019-01-19 11:38 | Outpatient (CLI) | payer MEDICAID ==
[2019-01-19 12:41] LABS: URINE AMPHETAMINES SCREEN NEGATIVE; URINE BARBITURATES SCREEN NEGATIVE; URINE BENZODIAZEPINES SCREEN NEGATIVE; URINE COCAINE SCREEN NEGATIVE; URINE METHADONE SCREEN NEGATIVE; URINE PHENCYCLIDINE SCREEN NEGATIVE
[2019-01-19 12:56] LABS: URINE MARIJUANA (THC) SCREEN UNCONFIRMED POSITIVE
--- NOTE | 2019-01-19 13:15 | RADIOLOGY REPORT (SQ) ---
EXAM DESCRIPTION: U/S OB LIMITED COMPLETED DATE/TIME: 01/19/2019 12:53 pm REASON FOR STUDY: s/p fall, 24 wks abdominal pain COMPARISON: None. TECHNIQUE: Limited transabdominal grayscale ultrasound for evaluation of specific requested obstetri obdulio parameters. LIMITATIONS: None. FINDINGS: CERVICAL LENGTH: 3.6 cm. Closed. LAVERN: Largest pocket 5.1 cm. FHR: 150 beats per minute. PRESENTATION: Breech. PLACENTA: Posterior ANATOMY: Not assessed OTHER: No other significant findings. IMPRESSION: LIMITED OBSTETRICAL ULTRASOUND WITH MEASURED PARAMETERS DELINEATED ABOVE. Trimester of : Second trimester - 13 weeks 1 day to 27 weeks 6 days. TECHNICAL DOCUMENTATION: JOB ID: [id number] [employer]- All Rights Reserved Reading location - IP/workstation name: [email or web address]
[2019-01-19 13:54] LABS: APPEARANCE,URINE SLIGHTLY-CLOUDY; BILIRUBIN,URINE NEGATIVE (NEGATIVE); COLOR,URINE YELLOW; GLUCOSE, URINE NEGATIVE (NEGATIVE); KETONES,URINE NEGATIVE (NEGATIVE); LEUKOCYTE ESTERASE,URINE NEGATIVE (NEGATIVE); NITRITE,URINE NEGATIVE (NEGATIVE); PROTEIN,URINE NEGATIVE (NEGATIVE); URINE SPECIFIC GRAVITY 1.005; UROBILINOGEN,URINE NEGATIVE mg/dL (<2.0)
== END 2019-01-19 14:05 | disposition home or self-care (01) ==
LOC: LC 11:38
PROVIDERS: ATTEND Student in an Organized Health Care Education/Training Program
PROC: 4A1HXCZ Monitoring of Products of Conception, Cardiac Rate, External Approach (ICD-10-PCS; principal; 2019-01-19)
DX: O9A.212 Injury, poisoning and certain other consequences of external causes complicating pregnancy, second trimester (principal); R10.9 Unspecified abdominal pain; O99.332 Smoking (tobacco) complicating pregnancy, second trimester; F17.210 Nicotine dependence, cigarettes, uncomplicated; Z3A.24 24 weeks gestation of pregnancy; W19.XXXA Unspecified fall, initial encounter
CPT/HCPCS: 59899; 81001; 80307; 76815; G0480 ×2; 80349

== ENCOUNTER 2019-03-12 16:58 | Outpatient (CLI) | payer MEDICAID ==
[2019-03-12 18:06] LABS: AMORPHOUS SEDIMENT,URINE TRACE /HPF; APPEARANCE,URINE CLOUDY; BILIRUBIN,URINE NEGATIVE (NEGATIVE); COLOR,URINE AMBER; GLUCOSE, URINE NEGATIVE (NEGATIVE); KETONES,URINE NEGATIVE (NEGATIVE); LEUKOCYTE ESTERASE,URINE LARGE (NEGATIVE); NITRITE,URINE POSITIVE (NEGATIVE); PROTEIN,URINE 100 mg/dL (NEGATIVE); URINE SPECIFIC GRAVITY 1.014
[2019-03-12 18:22] LABS: URINE AMPHETAMINES SCREEN NEGATIVE; URINE BARBITURATES SCREEN NEGATIVE; URINE BENZODIAZEPINES SCREEN NEGATIVE; URINE COCAINE SCREEN NEGATIVE; URINE MARIJUANA (THC) SCREEN NEGATIVE; URINE METHADONE SCREEN NEGATIVE; URINE PHENCYCLIDINE SCREEN NEGATIVE
[2019-03-12] MEDS ORDERED: NITROFURANTOIN MONOHYD/M-CRYST 100 MG CAPSULE ONE (18:44)
[2019-03-12] MEDS ORDERED: NITROFURANTOIN MONOHYD/M-CRYST 100 MG CAPSULE PO ONE (18:50)
== END 2019-03-12 18:58 | disposition home or self-care (01) ==
LOC: LC 16:58
PROVIDERS: ATTEND Obstetrics & Gynecology
PROC: 4A1HXCZ Monitoring of Products of Conception, Cardiac Rate, External Approach (ICD-10-PCS; principal; 2019-03-12)
DX: O23.43 Unspecified infection of urinary tract in pregnancy, third trimester (principal); Z3A.31 31 weeks gestation of pregnancy
CPT/HCPCS: 87086; 87088; 81001; 87186; 80307; 59899; J3490; J8499

== ENCOUNTER 2019-05-08 01:11 | Inpatient (IN) | payer MEDICAID ==
[2019-05-08 01:59] LABS: APPEARANCE,URINE SLIGHTLY-CLOUDY; BILIRUBIN,URINE NEGATIVE (NEGATIVE); COLOR,URINE YELLOW; GLUCOSE, URINE NEGATIVE (NEGATIVE); KETONES,URINE NEGATIVE (NEGATIVE); LEUKOCYTE ESTERASE,URINE TRACE (NEGATIVE); NITRITE,URINE NEGATIVE (NEGATIVE); PROTEIN,URINE NEGATIVE (NEGATIVE)
[2019-05-08] MEDS: RINGERS SOLUTION,LACTATED 1,000 ML IV PRN ×2 (02:02→06:21)
[2019-05-08 02:15] LABS: ABSOLUTE BASOPHILS # (AUTO) 0.1 10^3/uL (0.0-0.2); ABSOLUTE EOSINOPHILS # (AUTO) 0.1 10^3/uL (0.0-0.6); ABSOLUTE LYMPHOCYTES (AUTO) 2.5 10^3/uL (0.5-4.7); ABSOLUTE MONOCYTES (AUTO) 0.9 10^3/uL (0.1-1.4); ABSOLUTE NEUT (AUTO) 10.8 10^3/uL (1.7-8.2); BASOPHILS % (AUTO) 0.7 % (0-2); EOSINOPHILS % (AUTO) 0.4 % (0-6); HEMATOCRIT 31.1 % (36.0-47.0); HEMOGLOBIN 10.3 g/dL (12.0-15.5); LYMPHOCYTES % (AUTO) 17.2 % (13-45); MEAN CORPUSCULAR HEMOGLOBIN 26.4 pg (27.0-33.4); MEAN CORPUSCULAR HGB CONC 33.2 g/dL (32.0-36.0); MEAN CORPUSCULAR VOLUME 80 fl (80-97); MONOCYTES % (AUTO) 6.3 % (3-13); PLATELET COUNT 241 10^3/uL (150-450); RED BLOOD COUNT 3.91 10^6/uL (3.72-5.28); RED CELL DISTRIBUTION WIDTH 13.7 % (11.5-14.0); SEGMENTED NEUTROPHILS % (AUTO) 75.4 % (42-78); TOTAL CELLS COUNTED % (AUTO) 100 %; WHITE BLOOD COUNT 14.4 10^3/uL (4.0-10.5)
[2019-05-08] MEDS ORDERED: OXYTOCIN 10 UNIT/ML VIAL ONE (02:56)
[2019-05-08] MEDS ORDERED: OXYTOCIN/NORMAL SALINE 20 UNIT/1,000 ML RTUINJ ONE (02:57)
[2019-05-08] MEDS ORDERED: MISOPROSTOL 0.2 MG TABLET ONE (02:57)
[2019-05-08 02:59] LABS: URINE AMPHETAMINES SCREEN NEGATIVE; URINE BARBITURATES SCREEN NEGATIVE; URINE BENZODIAZEPINES SCREEN NEGATIVE; URINE COCAINE SCREEN NEGATIVE; URINE MARIJUANA (THC) SCREEN NEGATIVE; URINE METHADONE SCREEN NEGATIVE; URINE PHENCYCLIDINE SCREEN NEGATIVE
[2019-05-08] MEDS ORDERED: OXYTOCIN/NORMAL SALINE 20 UNIT/1,000 ML RTUINJ IV PRN (03:52)
--- NOTE | 2019-05-08 06:59 | Admission Physical ---
Datetime Report Generated by CPN: 05/08/2019 06:59 CURRENT ADMISSION Chief Complaint: Uterine Contractions; Suspected Ruptured Membranes Indication for Induction: PROM Admit Impression : Term, Intrauterine ; No Active Labor; Ruptured Membranes Admit Plan: Admit to Unit; Initiate Labor Augmentation Protocol ALLERGIES Medication Allergies: No Medication Allergies: No Known Allergies (01/19/2019) Latex: No Latex Allergies OBSTETRICAL HISTORY EDC: 05/10/2019 00:00 : 4 Para: 0 Term: 0 : 0 SAB: 2 IAB: 0 Ectopic: 0 Livin Cesareans: 0 VBACs: 0 Multiple Births: 0 Gestational Diabetes: No Rh Sensitization: No Incompetent Cervix: No ANGELITA: No Infertility: No ART Treatment: No Uterine Anomaly: No IUGR: No Hx Previous C/S: No Macrosomia: No Hx Loss/Stillborn: No PIH: No Hx : No Placenta Previa/Abruption: No Depression/PP Depression: No PTL/PROM: No Post Hemorrhage: No Current Procedures: Ultrasound Obstetrical History Comments: 2015 G4 - current - subchorionic bleed 10/20/18 SEE RECORDS Alcohol: No Marijuana : Yes Cocaine: No Other Illicit Drugs: No Cigarettes: Current Everyday Smoker. 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 Surgery: No Heart Disease: No Hosp/Surgery: Yes Autoimmune Disorder: No Anesthetic Complications: No Kidney Disease: No Abnormal Pap Smear: No Neuro/Epilepsy: No Psychiatric Disorders: No Other Medical Diseases: No Hepatitis/Liver Disease: No Significant Family History: No Varicosities/Phlebitis: No Trauma/Violence : No Thyroid Dysfunction: No Medical History Comments: adenoids, tonsils, wisdom teeth, I_D R knee INFECTIOUS HISTORY Gonorrhea: No Genital Herpes: No Chlamydia: Yes Tuberculosis: No Syphilis: No Hepatitis: No HIV/AIDS Exposure: No Rash or Viral Illness: No HPV: No Infectious History Comments: beginning of PHYSICAL EXAM General: Normal HEENT: Normal Neurologic: Normal Thyroid: Normal Heart: Normal Lungs: Normal Breast: Normal Back: Normal Abdomen: Normal Genitourinary Exam: Normal Extremities: Normal DTRs: Normal Pelvic Type: Adequate Vital Signs: Reviewed; Within Normal Limits VAGINAL EXAM Dilatation: 1 Effacement: 70 Station: -2 MEMBRANES Pooling: Positive Membranes: Ruptured Amniotic Fluid Color: Clear FETUS A EGA: 39.5 Monitoring: External US FHR- Baseline: 130 Variability: Moderate 6-25bpm Accelerations: 10X10 Decelerations: None FHR Category: Category II Estimated Weight (gm): 3600 Presentation: Vertex PLANS FOR LABOR AND DELIVERY Labor and Delivery: None Pain Management: Epidural Feeding Preference: Breast Benefit of Breast Feed Discussed: Yes Circumcision: Yes INFORMED CONSENT Signature: with User ID: [email or web address]
[2019-05-08] MEDS ORDERED: NALBUPHINE HCL INJ 10 MG/1 ML AMPULE ONE (07:30)
[2019-05-08] MEDS ORDERED: PROMETHAZINE HCL INJ 25 MG/1 ML VIAL ONE (07:30)
[2019-05-08] MEDS ORDERED: NALBUPHINE HCL INJ 10 MG/1 ML AMPULE INJ ONE (07:36)
[2019-05-08] MEDS ORDERED: PROMETHAZINE HCL INJ 25 MG/1 ML VIAL IV ONE (07:36)
[2019-05-08] MEDS ORDERED: FENTANYL/BUPIVACAINE/NS/PF 300 MCG/150 ML RTUINJ EPI ONE (11:21)
[2019-05-08] MEDS ORDERED: BUPIVACAINE HCL 0.25 % INJ/PF (2.5 MG/1 ML) 30 ML VIAL ONE (11:21)
[2019-05-08] MEDS ORDERED: FENTANYL CITRATE INJ/PF 100 MCG/2 ML AMPUL ONE (11:21)
[2019-05-08] MEDS ORDERED: EPHEDRINE SULFATE INJ 50 MG/1 ML AMPULE ONE (11:21)
[2019-05-08] MEDS ORDERED: BUPIVACAINE HCL 0.5 % INJ/PF 30 ML SDV ONE (22:56)
[2019-05-09] MEDS ORDERED: FENTANYL/BUPIVACAINE/NS/PF 300 MCG/150 ML RTUINJ EPI ONE (00:38)
[2019-05-09] MEDS ORDERED: OXYTOCIN/NORMAL SALINE 20 UNIT/1,000 ML RTUINJ ONE ×2 (03:57→10:31)
[2019-05-09] MEDS ORDERED: MISOPROSTOL 0.2 MG TABLET ONE ×2 (03:57→09:08)
[2019-05-09] MEDS ORDERED: CEFAZOLIN INJ 1 GM VIAL ONE ×2 (05:13→08:14)
[2019-05-09] MEDS ORDERED: CEFAZOLIN 2 GM/D5W RTU 2 GM/50 ML RTUPB IV SCH (06:00)
[2019-05-09] MEDS ORDERED: AMPICILLIN SOD INJ 2 GM VIAL IV ONE (07:06)
[2019-05-09] MEDS ORDERED: GENTAMICIN SULFATE INJ 80 MG/2 ML VIAL IV SCH (07:15)
[2019-05-09] MEDS ORDERED: AMPICILLIN SOD INJ 2 GM VIAL ONE (07:24)
[2019-05-09] MEDS ORDERED: ACETAMINOPHEN 325 MG TABLET ONE (07:37)
[2019-05-09] MEDS ORDERED: CITRIC ACID/SODIUM CITRATE ORAL SOLN 15 ML UDCUP ONE (08:14)
[2019-05-09] MEDS ORDERED: LIDOCAINE 2% INJ-PF (20 MG/ML) 10 ML AMPUL ONE ×2 (08:22→08:27)
[2019-05-09] MEDS ORDERED: KETOROLAC TROMETHAMINE INJ/PF 30 MG/1 ML SDV ONE (08:22)
[2019-05-09] MEDS ORDERED: FENTANYL CITRATE INJ/PF 100 MCG/2 ML AMPUL ONE ×2 (08:22→10:07)
[2019-05-09] MEDS ORDERED: OXYTOCIN 10 UNIT/ML VIAL ONE (08:22)
[2019-05-09] MEDS ORDERED: PHENYLEPHRINE HCL INJ/PF 10 MG/1 ML SDV ONE (08:23)
[2019-05-09] MEDS ORDERED: ONDANSETRON HCL INJ/PF 4 MG/2 ML SDV ONE (08:23)
[2019-05-09] MEDS ORDERED: ACETAMINOPHEN 1,000 MG/100 ML RTUPB IV ONE (08:23)
--- NOTE | 2019-05-09 08:31 | PDOC PROGRESS REPORT ---
Subjective Progress Note for:: 05/09/19 Subjective:: Called to patients room to assess due to tachycardia in 170s bpm. She has been laboring overnight and was dilated to 9 cm at last check approx 0600. She was dx with chorioamnionitis this am at approx 0530. Antibiotics started at that time. On recheck currently she is still same station, still 9 cm . Discussed with patient that no change in cervical exam from 2 hrs ago. Baby is now steadily tachycardia despite interventions. Recommend proceeding with delivery. RIsk and benefits discussed. Consent for procedure signed on admission. Will notify OR team and anesthesia of plan for delivery. heart tracing 175 bpm with minimal variability. No decels but no acels Reason For Visit: Physical Exam - Physical Exam Vital Signs: Intake & Output 05/08/19 05/09/19 05/10/19 06:59 06:59 06:59 Intake Total 540 Balance 540 Weight 102.2 kg Result Laboratory Results: 05/08/19 02:03 Assessment & Plan - Time Time Spent with patient: Less than 15 minutes
[2019-05-09] MEDS ORDERED: MORPHINE SULFATE 10 MG/ML INJ IV PRN (09:52)
[2019-05-09] MEDS ORDERED: RINGERS SOLUTION,LACTATED 1,000 ML IV PRN (09:52)
[2019-05-09] MEDS ORDERED: OXYTOCIN/NORMAL SALINE 20 UNIT/1,000 ML RTUINJ IV PRN (09:52)
[2019-05-09] MEDS ORDERED: SIMETHICONE 80 MG TAB.CHEW PO PRN (09:52)
[2019-05-09] MEDS ORDERED: PROMETHAZINE HCL INJ 25 MG/1 ML VIAL IV PRN (09:52)
[2019-05-09] MEDS ORDERED: ACETAMINOPHEN 100 ML IV PRN (09:52)
[2019-05-09] MEDS ORDERED: DIPH/PERTUSS(ACELL)/TETANUS VAC/PF 0.5 ML SYR (>=10YO) IM PRN (09:52)
[2019-05-09] MEDS ORDERED: MEASLES,MUMPS&RUBELLA VACC/PF 0.5 ML VIAL SUBCUT PRN (09:52)
[2019-05-09] MEDS ORDERED: OXYCODONE-ACETAMINOPHEN 5-325 MG TABLET PO PRN (09:52)
--- NOTE | 2019-05-09 09:57 | Operative Report ---
Operative Report DATE OF SURGERY: 05/09/19 PREOPERATIVE DIAGNOSIS: IUP at 40 weeks and 3 days. Failure to progress, reass uring heart tones, occipitoposterior presentation. POSTOPERATIVE DIAGNOSIS: Same OPERATION: Primary low transverse hysterotomy section SURGEON: ROSALINA PERES ANESTHESIA: Epidural COMPLICATIONS: None ESTIMATED BLOOD LOSS: 750 cc INTRAOPERATIVE FINDINGS: Infant in cephalic presentation with obvious precipitate posterior presentation, Apgars of 7 and 7 PROCEDURE: PROCEDURE IN DETAIL: The patient was taken to the operating room, prepared and draped in a normal sterile fashion in a supine position with a leftward tilt. A transverse skin incision was made with a scalpel and carried through to the underlying layer of fascia with the same scalpel. The fascia was excised in the midline and extended laterally with Jason. The fascia was then dissected from the rectus muscle sharply with Jason and the rectus muscle was divided and the peritoneal cavity was entered sharply with the same Metzenbaum. With good visualization of the bladder and the uterus the bladder blade was inserted. The hysterotomy was nicked with a scalpel and extended laterally with surgeon finger fraction. The was then delivered atraumatically. The nose and mouth were suctioned with a suction bulb, the cord was clamped and cut and handed off to awaiting pediatricians. Cord blood was collected. The placenta was removed manually. The uterus was exteriorized and cleared of clots and debris. The hysterotomy was closed with 0 Monocryl in a running, locked fashion. A second layer of the same suture was used to imbricate to ensure hemostasis. The uterus was returned to the abdomen and peritoneal cavity was cleared of clots and debris. The rectus muscle and peritoneum were repaired with mattress stitch of 2-0 Chromic. The fascia was closed with 0-Vicryl. The subcutaneous layer was closed with plain catgut and the skin was closed with 4-0 Vicryl. The patient tolerated the procedure well. Sponge, lap, and needle counts correct x2 and the patient was taken to recovery in stable condition.
[2019-05-09] MEDS ORDERED: AMPICILLIN SOD/SULBACTAM 3 GM VIAL IV SCH (10:00)
[2019-05-09] MEDS ORDERED: GENTAMICIN SULFATE 120 MG in DEXTROSE 5%-WATER 100 ML IV SCH (10:00)
[2019-05-09] MEDS: PRENATAL VITAMIN W DHA CAPSULE PO SCH (12:54)
[2019-05-09] MEDS: DOCUSATE SODIUM 100 MG CAPSULE PO SCH ×2 (12:54→17:51)
[2019-05-09] MEDS: KETOROLAC TROMETHAMINE INJ/PF 30 MG/1 ML SDV IV SCH ×2 (13:50→22:07)
[2019-05-09] MEDS ORDERED: ACETAMINOPHEN 325 MG TABLET PO PRN (14:00)
[2019-05-09] MEDS: AMPICILLIN SODIUM/SULBACTAM NA 3 GM in NORMAL SALINE 100 ML IV SCH ×2 (14:31→22:08)
[2019-05-09] MEDS: OXYCODONE-ACETAMINOPHEN 5-325 MG TABLET PO PRN ×2 (16:04→20:39)
[2019-05-10] MEDS: KETOROLAC TROMETHAMINE INJ/PF 30 MG/1 ML SDV IV SCH (05:56)
[2019-05-10] MEDS: OXYCODONE-ACETAMINOPHEN 5-325 MG TABLET PO PRN ×3 (05:57→21:19)
[2019-05-10] MEDS: AMPICILLIN SODIUM/SULBACTAM NA 3 GM in NORMAL SALINE 100 ML IV SCH (05:57)
[2019-05-10 07:30] LABS: HEMATOCRIT 23.2 % (36.0-47.0); MEAN CORPUSCULAR HEMOGLOBIN 25.7 pg (27.0-33.4); MEAN CORPUSCULAR HGB CONC 32.1 g/dL (32.0-36.0); MEAN CORPUSCULAR VOLUME 80 fl (80-97); PLATELET COUNT 203 10^3/uL (150-450); RED CELL DISTRIBUTION WIDTH 13.9 % (11.5-14.0)
[2019-05-10 07:55] LABS: WHITE BLOOD COUNT 29.8 10^3/uL (4.0-10.5)
[2019-05-10 08:01] LABS: HEMOGLOBIN 7.4 g/dL (12.0-15.5)
[2019-05-10] MEDS: DOCUSATE SODIUM 100 MG CAPSULE PO SCH ×2 (12:09→17:20)
[2019-05-10] MEDS: PRENATAL VITAMIN W DHA CAPSULE PO SCH (12:09)
[2019-05-10] MEDS: IBUPROFEN 800 MG TABLET PO SCH ×3 (13:06→23:04)
--- NOTE | 2019-05-10 13:25 | PDOC PROGRESS REPORT ---
Subjective-OB Progress Note for:: 05/10/19 Subjective: Pt was in NICU with baby this am. She is ambulatory, sitting up eating reg diet now. Reports mod/heavy bleeding, but no clots. Voiding without difficulty. Denies fever, states she is feeling fine. Denies s/sx of anemia. Physical Exam (OB) Vital Signs: Temp Pulse Resp BP Pulse Ox 98.0 F 81 16 106/59 L 100 05/10/19 08:10 05/10/19 08:10 05/10/19 08:10 05/10/19 08:10 05/10/19 08:10 Intake & Output 05/09/19 05/10/19 05/11/19 06:59 06:59 06:59 Intake Total 200 Output Total 3750 Balance -3550 - PIH/Pre-Eclampsia DTR's: 1 + Clonus: Negative Headache: Absent Epigastric Pain: No Visual Changes: No - Dressing Removed: No Incision: Dressing, Well Approximated Closure Type: Surgical Glue - Lochia Lochia Amount: Scant < 10 ml Lochia Color: Rubra/Red - Abdomen Description: Soft, Round Hernia Present: No Fundal Description: Firm, Midline Fundal Height: u/u - u/2 Objective-Diagnostic Laboratory: 05/10/19 05:59 05/10/19 05:59 WBC 29.8 H D RBC 2.90 L Hgb 7.4 L D Hct 23.2 L MCV 80 MCH 25.7 L MCHC 32.1 RDW 13.9 Plt Count 203 Assessment and Plan(PN) - Assessment and Plan (1) Chorioamnionitis Qualifiers: Fetus number: single or unspecified fetus Trimester: first trimester Qualified Code(s): O41.1210 - Chorioamnionitis, first trimester, not applicable or unspecified Is this a current diagnosis for this admission?: Yes (2) Failure to progress in labor Is this a current diagnosis for this admission?: Yes (3) Non-reassuring heart rate, delivered, current hospitalization Is this a current diagnosis for this admission?: Yes (4) S/P primary low transverse Is this a current diagnosis for this admission?: Yes (5) Tetrahydrocannabinol (THC) use disorder, mild, abuse Is this a current diagnosis for this admission?: Yes - Time Spent with Patient Time with patient: Less than 15 minutes Medications reviewed and adjusted accordingly: Yes - Disposition Anticipated Discharge: Home Within: within 24 hours
[2019-05-10] MEDS: ASCORBIC ACID 500 MG TABLET PO SCH (17:20)
[2019-05-10] MEDS: FERROUS SULFATE 325 MG TABLET PO SCH ×2 (17:20)
[2019-05-11] MEDS: OXYCODONE-ACETAMINOPHEN 5-325 MG TABLET PO PRN ×3 (03:26→22:55)
[2019-05-11] MEDS: IBUPROFEN 800 MG TABLET PO SCH ×4 (06:15→23:00)
[2019-05-11 07:35] LABS: HEMATOCRIT 21.6 % (36.0-47.0); MEAN CORPUSCULAR HEMOGLOBIN 25.5 pg (27.0-33.4); MEAN CORPUSCULAR HGB CONC 32.2 g/dL (32.0-36.0); MEAN CORPUSCULAR VOLUME 79 fl (80-97); PLATELET COUNT 224 10^3/uL (150-450); RED BLOOD COUNT 2.74 10^6/uL (3.72-5.28); RED CELL DISTRIBUTION WIDTH 13.8 % (11.5-14.0); WHITE BLOOD COUNT 22.8 10^3/uL (4.0-10.5)
[2019-05-11 07:41] LABS: ABSOLUTE LYMPHOCYTES# (MANUAL) 3.9 10^3/uL (0.5-4.7); ABSOLUTE MONOCYTES # (MANUAL) 0.7 10^3/uL (0.1-1.4); BAND NEUTROPHILS % (MANUAL) 1 % (3-5); BASOPHILS % (MANUAL) 1 % (0-2); EOSINOPHILS % (MANUAL) 0 % (0-6); LYMPHOCYTES % (MANUAL) 17 % (13-45); MONOCYTES % (MANUAL) 3 % (3-13); SEGMENTED NEUTROPHILS % (MAN) 78 % (42-78); TOTAL CELLS COUNTED 100
[2019-05-11 07:42] LABS: POLYCHROMASIA SLIGHT
[2019-05-11 07:43] LABS: PLATELET COMMENT ADEQUATE
[2019-05-11] MEDS: PRENATAL VITAMIN W DHA CAPSULE PO SCH (09:26)
[2019-05-11] MEDS: ASCORBIC ACID 500 MG TABLET PO SCH ×2 (09:26→17:13)
[2019-05-11] MEDS: FERROUS SULFATE 325 MG TABLET PO SCH ×3 (09:26→17:13)
[2019-05-11] MEDS: DOCUSATE SODIUM 100 MG CAPSULE PO SCH ×2 (09:26→17:13)
--- NOTE | 2019-05-11 12:59 | PDOC PROGRESS REPORT ---
Subjective-OB Progress Note for:: 05/11/19 Subjective: 24yo G1 now P1 s/p primary ppd2. Ambulating and voiding without difficulty. Pain well controlled with medication, no concerns at this time Physical Exam (OB) Vital Signs: Temp Pulse Resp BP Pulse Ox 98 F 94 14 105/71 100 05/11/19 12:00 05/11/19 12:00 05/11/19 12:00 05/11/19 12:00 05/11/19 12:00 Intake & Output 05/10/19 05/11/19 05/12/19 06:59 06:59 06:59 Intake Total 200 Output Total 3750 Balance -3550 - General General Appearance: Appears well In distress: None - PIH/Pre-Eclampsia DTR's: 1 + Clonus: Negative Headache: Absent Epigastric Pain: No Visual Changes: No - Dressing Removed: No Incision: Dressing, Well Approximated Closure Type: Surgical Glue - Lochia Lochia Amount: Scant < 10 ml Lochia Color: Rubra/Red - Abdomen Description: Tender, Soft Hernia Present: No Fundal Description: Firm, Midline Fundal Height: u/u - u/2 - Respiratory Respiratory Status: No respiratory distress - Extremities Upper extremity: Normal inspection Lower extremities: Normal inspection - Neurological Cognition: Normal Orientation: AAOx4 - Psychological Associated symptoms: Normal affect, Normal mood Objective-Diagnostic Laboratory: 05/11/19 06:30 05/11/19 06:30 WBC 22.8 H RBC 2.74 L Hgb 7.0 L Hct 21.6 L MCV 79 L MCH 25.5 L MCHC 32.2 RDW 13.8 Plt Count 224 Seg Neutrophils % Not Reportable Assessment and Plan(PN) - Assessment and Plan (1) Anemia complicating , third trimester Is this a current diagnosis for this admission?: Yes Plan: denies sob/lightheadedness, dizziness or other concerns. Declines iron infusion or blood transfusion today. Increase dietary iron and FeSO4 BID (2) Acute blood loss anemia Is this a current diagnosis for this admission?: Yes Plan: declines iron infusion or blood transfusion, see above (3) Smoker Is this a current diagnosis for this admission?: Yes Plan: cessation encouraged (4) Non-reassuring heart rate, delivered, current hospitalization Is this a current diagnosis for this admission?: Yes Plan: delivered (5) Failure to progress in labor Is this a current diagnosis for this admission?: Yes Plan: delivered via (6) S/P primary low transverse Is this a current diagnosis for this admission?: Yes Plan: routine pp care (7) Chorioamnionitis Qualifiers: Fetus number: single or unspecified fetus Trimester: first trimester Qualified Code(s): O41.1210 - Chorioamnionitis, first trimester, not applicable or unspecified Is this a current diagnosis for this admission?: Yes Plan: delivered, baby on 7 days on antibiotics (8) Tetrahydrocannabinol (THC) use disorder, mild, abuse Is this a current diagnosis for this admission?: Yes Plan: cessation encouraged, senior planner consult placed (9) Qualifiers: Weeks of gestation: 39 weeks Qualified Code(s): Z3A.39 - 39 weeks gestation of Is this a current diagnosis for this admission?: Yes Plan: delivered - Time Spent with Patient Time with patient: 15-25 minutes Smoking Education Provided: Over 3 minutes Medications reviewed and adjusted accordingly: Yes - Disposition Anticipated Discharge: Home Within: within 24 hours
[2019-05-12] MEDS: IBUPROFEN 800 MG TABLET PO SCH (05:34)
[2019-05-12] MEDS: OXYCODONE-ACETAMINOPHEN 5-325 MG TABLET PO PRN (06:18)
--- NOTE | 2019-05-12 09:17 | PDOC DISCHARGE SUMMARY ---
Impression - Admit/DC Date/PCP Admission Date/Primary Care Provider: 05/08/19 01:48 ROSALINA PERES MD Discharge Date: 05/12/19 - POD #3, s/p , baby still has IV in, so pt may need to board/nest overnight. O+, Rubella Immune, bottlefeeding - Discharge Diagnosis (1) Acute blood loss anemia Is this a current diagnosis for this admission?: Yes (2) Anemia complicating , third trimester Is this a current diagnosis for this admission?: Yes (3) Chorioamnionitis Is this a current diagnosis for this admission?: Yes (4) Failure to progress in labor Is this a current diagnosis for this admission?: Yes (5) Non-reassuring heart rate, delivered, current hospitalization Is this a current diagnosis for this admission?: Yes (6) S/P primary low transverse Is this a current diagnosis for this admission?: Yes (7) Smoker Is this a current diagnosis for this admission?: Yes (8) Is this a current diagnosis for this admission?: Yes (9) Tetrahydrocannabinol (THC) use disorder, mild, abuse Is this a current diagnosis for this admission?: Yes - Additional Information Resuscitation Status: Full Code Discharge Diet: As Tolerated, Regular Discharge Activity: Activity As Tolerated, No Driving, No Lifting Over 10 Pounds, Pelvic Rest Referrals: ROSALINA PERES MD [Primary Care Provider] - Prescriptions: Ferrous Sulfate [Feosol 325 mg Tablet] 325 mg PO BID #60 tablet Ibuprofen [Motrin 800 mg Tablet] 800 mg PO Q6 #60 tablet Oxycodone HCl/Acetaminophen [Percocet 5-325 mg Tablet] 1 tab PO Q4HP PRN #30 tablet PRN Reason: Pain Scale Of 4 Home Medications: Vit,Calc76/Iron/Folic [Prenatabs Rx Tablet] 1 tab PO DAILY 03/12/19 Ferrous Sulfate [Feosol 325 mg Tablet] 325 mg PO BID #60 tablet 05/12/19 Ibuprofen [Motrin 800 mg Tablet] 800 mg PO Q6 #60 tablet 05/12/19 Oxycodone HCl/Acetaminophen [Percocet 5-325 mg Tablet] 1 tab PO Q4HP PRN #30 tablet 05/12/19 HPI Reason(s) for Admission: Onset of Labor Procedures: NST, Ultrasound Intrapartum Procedure(s): : Low Cervical, Transverse Intrapartum Procedure Note: chorioamnionitis during labor Hospital Course Hospital Course: stable Results Laboratory Results: WBC 22.8 10^3/uL (4.0-10.5) H 05/11/19 06:30 RBC 2.74 10^6/uL (3.72-5.28) L 05/11/19 06:30 Hgb 7.0 g/dL (12.0-15.5) L 05/11/19 06:30 Hct 21.6 % (36.0-47.0) L 05/11/19 06:30 MCV 79 fl (80-97) L 05/11/19 06:30 MCH 25.5 pg (27.0-33.4) L 05/11/19 06:30 MCHC 32.2 g/dL (32.0-36.0) 05/11/19 06:30 RDW 13.8 % (11.5-14.0) 05/11/19 06:30 Plt Count 224 10^3/uL (150-450) 05/11/19 06:30 Lymph % (Auto) Not Reportable 05/11/19 06:30 [place] % (Auto) Not Reportable 05/11/19 06:30 Eos % (Auto) Not Reportable 05/11/19 06:30 Baso % (Auto) Not Reportable 05/11/19 06:30 Absolute Neuts (auto) Not Reportable 05/11/19 06:30 Absolute Lymphs (auto) Not Reportable 05/11/19 06:30 Absolute Monos (auto) Not Reportable 05/11/19 06:30 Absolute Eos (auto) Not Reportable 05/11/19 06:30 Absolute Basos (auto) Not Reportable 05/11/19 06:30 Total Counted 100 05/11/19 06:30 Seg Neutrophils % Not Reportable 05/11/19 06:30 Seg Neuts % (Manual) 78 % (42-78) 05/11/19 06:30 Band Neutrophils % 1 % (3-5) L 05/11/19 06:30 Lymphocytes % (Manual) 17 % (13-45) 05/11/19 06:30 Monocytes % (Manual) 3 % (3-13) 05/11/19 06:30 Eosinophils % (Manual) 0 % (0-6) 05/11/19 06:30 Basophils % (Manual) 1 % (0-2) 05/11/19 06:30 Abs Neuts (Manual) 18.0 10^3/uL (1.7-8.2) H 05/11/19 06:30 Abs Lymphs (Manual) 3.9 10^3/uL (0.5-4.7) 05/11/19 06:30 Abs Monocytes (Manual) 0.7 10^3/uL (0.1-1.4) 05/11/19 06:30 Absolute Eos (Manual) 0.0 10^3/uL (0.0-0.6) 05/11/19 06:30 Abs Basophils (Manual) 0.2 10^3/uL (0.0-0.2) 05/11/19 06:30 Platelet Comment ADEQUATE 05/11/19 06:30 Polychromasia SLIGHT 05/11/19 06:30 Microcytosis SLIGHT 05/11/19 06:30 Urine Color YELLOW 05/08/19 01:20 Urine Appearance SLIGHTLY-CLOUDY 05/08/19 01:20 Urine pH 7.0 (5.0-9.0) 05/08/19 01:20 Ur Specific [place] 1.010 05/08/19 01:20 Urine Protein NEGATIVE mg/dL (NEGATIVE) 05/08/19 01:20 Urine Glucose (UA) NEGATIVE mg/dL (NEGATIVE) 05/08/19 01:20 Urine Ketones NEGATIVE mg/dL (NEGATIVE) 05/08/19 01:20 Urine Blood NEGATIVE (NEGATIVE) 05/08/19 01:20 Urine Nitrite NEGATIVE (NEGATIVE) 05/08/19 01:20 Urine Bilirubin NEGATIVE (NEGATIVE) 05/08/19 01:20 Urine Urobilinogen 2.0 mg/dL (<2.0) H 05/08/19 01:20 Ur Leukocyte Esterase TRACE (NEGATIVE) H 05/08/19 01:20 Urine Ascorbic Acid NEGATIVE (NEGATIVE) 05/08/19 01:20 Membranes Rupture POSITIVE (NEGATIVE) H 05/08/19 01:34 Urine Opiates Screen NEGATIVE 05/08/19 01:20 Urine Methadone Screen NEGATIVE 05/08/19 01:20 Ur Barbiturates Screen NEGATIVE 05/08/19 01:20 Ur Phencyclidine Scrn NEGATIVE 05/08/19 01:20 Ur Amphetamines Screen NEGATIVE 05/08/19 01:20 U Benzodiazepines Scrn NEGATIVE 05/08/19 01:20 Urine Cocaine Screen NEGATIVE 05/08/19 01:20 U Marijuana (THC) Screen NEGATIVE 05/08/19 01:20 RPR NONREACTIVE (NONREACTIVE) 05/08/19 02:03 Blood Type O POSITIVE 05/08/19 02:03 Antibody Screen NEGATIVE 05/08/19 02:03 Plan Health Concerns: iron rich foods, iron supplementation. fever precautions Plan of Treatment: d/c home. f/u with [facility]
[2019-05-12 09:28] VITALS: BP 121/70
[2019-05-12] MEDS: FERROUS SULFATE 325 MG TABLET PO SCH (10:12)
[2019-05-12] MEDS: PRENATAL VITAMIN W DHA CAPSULE PO SCH (10:12)
[2019-05-12] MEDS: ASCORBIC ACID 500 MG TABLET PO SCH (10:12)
[2019-05-12] MEDS: DOCUSATE SODIUM 100 MG CAPSULE PO SCH (10:12)
--- NOTE | 2019-05-13 09:55 | Delivery Summary ---
Del Sum A-C Datetime Report Generated by CPN: 05/13/2019 09:55 DELIVERY PERSONNEL DELIVERY PERSONNEL: [id number] Delivery Doctor:: Shelly Farah MD DISTRICT MEDICAL EXAMINER:: Kaci aCstro CRNA Labor and Delivery Nurse:: Lisa Red RNwelding engineer Nurse:: Dina Hampton RN Breaker Machine Tender:: Lisa Red RN Corrugator Helper/PATIENT CARE ASSISTANT: ST Madie Corrugator Helper/PATIENT CARE ASSISTANT: Kyara Cerna MATERNAL INFORMATION Delivery Anesthesia: Epidural Medications After Delivery: Pitocin Bolus-Please Comment; Other-Please Comment Meds After Delivery Comment: Cytotec 200 mcg sublingual Delivery QBL: 890 Maternal Complications: Chorioamnionitis; Maternal Fever; Prolonged Labor > 20 Hrs LABOR SUMMARY EDC: 05/10/2019 00:00 No. Babies in Womb: 1 Attempted: No Labor Anesthesia: Epidural LABOR INFORMATION Reason for Induction: Not Applicable Onset of Labor: 05/09/2019 19:00 Oxytocin: Augmentation Group B Beta Strep: negative Antibiotics # of Doses: 0 Antibiotics Time of Last Dose: 0 Name of Antibiotic Given: 0 Steroids Given: None Reason Steroids Not Administered: Not Applicable MEMBRANES Membranes Rupture Method: Spontaneous Rupture of Membranes: 05/08/2019 00:30 Length of Rupture (hr): 32.58 Amniotic Fluid Color: Clear Amniotic Fluid Amount: Small Amniotic Fluid Odor: Normal STAGES OF LABOR Stage 3 hr: 0 Stage 3 min: 1 Total Time in Labor hr: -9 Total Time in Labor min: -54 VAGINAL DELIVERY Sponge Count Correct: N/A CSECTION DELIVERY Primary Indication: Nonreassuring Status CSection Urgency: Non-Scheduled CSection Incidence: Primary Labor: Labor Elective: Nonelective CSection Incision: Lower Uterine Transverse BABY A INFORMATION Delivery Date/Time: 05/09/2019 09:05 Method of Delivery: Born in Route : No : N/A Forceps: N/A Vacuum Extraction: N/A Shoulder Dystocia : No PRESENTATION/POSITION BABY A Presentation: Cephalic Cephalic Presentation: Vertex Vertex Position: Right Occipital Posterior Breech Presentation: N/A PLACENTA INFORMATION BABY A Placenta Delivery Time : 05/09/2019 09:06 Placenta Method of Delivery: Manual Removal Placenta Status: Delivered SCORES BABY A Heart Rate 1 min: >100 bpm Resp Effort 1 min: Absent Reflex Irritability 1 min: Grimace Muscle Tone 1 min: Some Flexion of Extremities Color 1 min: Blue/Pale Resuscitation Effort 1 min: Tactile Stimulation; Oxygen; PPV/NCPAP SCORE 1 MIN: 4 Heart Rate 5 min: >100 bpm Resp Effort 5 min: Slow, Irregular Reflex Irritability 5 min: Grimace Muscle Tone 5 min: Some Flexion of Extremities Color 5 min: Body [place], Extremities Blue SCORE 5 MIN: 6 Heart Rate 10 min: >100 bpm Resp Effort 10 min: Good Cry Reflex Irritability 10 min: Cough or Sneeze or Pulls Away Muscle Tone 10 min: Active Motion Color 10 min: Body [place], Extremities Blue SCORE 10 MIN: 9 INFANT INFORMATION BABY A Gestational Age at Delivery: 39.6 Gestational Status: Full Term- 39- 40.6 Weeks Outcome : Liveborn Condition : Stable Infant Sex: Male IDENTIFICATION BABY A Infant Verification Date/Time: 05/09/2019 09:07 ID Band Number: [id number] Mother's Name Verified: Yes RN Verifying Infant: Richard Red SELMA Additional Verifying Personnel: Ml Hampton RN WEIGHT/LENGTH BABY A Infant Birthweight (gm): 4046 Weight (lb): 8 Infant Weight (oz): 15 Length (in): 21.50 Infant Length (cm): 54.61 CORD INFORMATION BABY A No. Cord Vessels: 3 Nuchal Cord : N/A Cord Blood Taken: Yes-For Storage (Mom's Blood type +) Suction: Mouth; Nose ASSESSMENT BABY A Complications: Decreased Variability; Extended Tachycardia; Multiple Late Decels Physical Findings at Delivery: Caput Succedaneum Skin to Skin: No Film Painter/ALS Called : Yes Transferred To: NICU BABY B INFORMATION : N/A
== END 2019-05-12 10:25 | disposition home or self-care (01) | DRG 787 ==
LOC: LC 01:11 → LR 01:48 → 2S 05-09 11:45
PROVIDERS: ADMIT Obstetrics & Gynecology; ATTEND Obstetrics & Gynecology
PROC: 4A1HXCZ Monitoring of Products of Conception, Cardiac Rate, External Approach (ICD-10-PCS; 2019-05-08)
PROC: 10D00Z1 Extraction of Products of Conception, Low, Open Approach (ICD-10-PCS; principal; 2019-05-09)
DX: O41.1230 Chorioamnionitis, third trimester, not applicable or unspecified (principal); D62 Acute posthemorrhagic anemia; O99.323 Drug use complicating pregnancy, third trimester; O63.9 Long labor, unspecified; O90.81 Anemia of the puerperium; O76 Abnormality in fetal heart rate and rhythm complicating labor and delivery; F17.210 Nicotine dependence, cigarettes, uncomplicated; O99.334 Smoking (tobacco) complicating childbirth; F12.10 Cannabis abuse, uncomplicated; O64.0XX0 Obstructed labor due to incomplete rotation of fetal head, not applicable or unspecified; O62.1 Secondary uterine inertia; Z28.21 Immunization not carried out because of patient refusal; Z3A.39 39 weeks gestation of pregnancy; Z37.0 Single live birth
CPT/HCPCS: 1961; 36415; 80307; 81005; 84112; 85025; 85027; 86592; 86850; 86900; 86901; 94799; J0131; J0290; J0295; J0690; J1580; J1885; J2270; J2300; J2370; J2405; J2550; J2590; J3010; J3490; J7050; J7060

== ENCOUNTER 2019-09-08 02:54 | Emergency (ER) | payer MEDICAID ==
[2019-09-08] MEDS ORDERED: LIDOCAINE 2% VISCOUS SOLN 15 ML UDCUP PO ONE (05:00)
--- NOTE | 2019-09-08 05:20 | ER Document Report ---
ED General - General Chief Complaint: Sore Throat Stated Complaint: SORE THROAT,COUGH Time Seen by Provider: 09/08/19 04:30 Primary Care Provider: [facility] [Provider Group] - Follow up in 3-5 days YULY PATEL MD [ACTIVE STAFF] - Follow up in 3-5 days Notes: 24-year-old female presents with multiple complaints. Patient originally was seen in triage for sore throat, nonproductive cough, and runny nose for the past week. Patient then states upon my arrival to the room that she is also having lower abdominal pain and nausea. Patient also states [facility] and was told she was and possibly miscarrying due to her blood levels being low. Patient states she has had intermittent vaginal spotting for the past week. Patient is unsure how far along she is. Patient denies any pelvic pain, vomiting, fever. TRAVEL OUTSIDE OF THE [place] IN LAST 30 DAYS: No - Related Data Allergies/Adverse Reactions: No Known Allergies Allergy (Verified 01/19/19 11:51) Past Medical History - Social History Smoking Status: Current Every Day Smoker Chew tobacco use (# tins/day): No Frequency of alcohol use: Social Drug Abuse: Marijuana Family History: Reviewed & Not Pertinent Patient has suicidal ideation: No Patient has homicidal ideation: No Pulmonary Medical History: Reports: Hx Asthma Renal/ Medical History: Denies: Hx Peritoneal Dialysis Past Surgical History: Reports: Hx Orthopedic Surgery - knee, Hx Tonsillectomy - Immunizations Immunizations up to date: Yes Hx Diphtheria, Pertussis, Tetanus Vaccination: Yes Review of Systems - Review of Systems Notes: Constitutional: Negative for fever. HENT: Positive for sore throat, rhinorrhea, nonproductive cough. Eyes: Negative for visual changes. Cardiovascular: Negative for chest pain. Respiratory: Negative for shortness of breath. Gastrointestinal: Positive for lower abdominal pain. Negative for vomiting or diarrhea. Genitourinary: Positive for vaginal bleeding. Negative for dysuria. Musculoskeletal: Negative for back pain. Skin: Negative for rash. Neurological: Negative for headaches, weakness or numbness. 10 point ROS negative except as marked above and in HPI. Physical Exam - Vital signs Vitals: Temp Pulse Resp BP Pulse Ox 97.3 F 97 16 125/65 99 09/08/19 02:58 09/08/19 02:58 09/08/19 02:58 09/08/19 02:58 09/08/19 02:58 - Notes Notes: GENERAL: Well-appearing, well-nourished and in no acute distress. HEAD: Atraumatic, normocephalic. EYES: Pupils equal round and reactive to light, extraocular movements intact, sclera anicteric, conjunctiva are normal. ENT: Nares patent, oropharynx clear without exudates. Uvula midline without edema. No tonsilar hypertrophy. No trismus. No muffled voice. Moist mucous membranes. No obvious GEODETIC ADVISOR. NECK: Normal range of motion, supple without lymphadenopathy or JVD. LUNGS: Breath sounds clear to auscultation bilaterally and equal. No wheezes rales or rhonchi. HEART: Regular rate and rhythm without murmurs, rubs or gallops. ABDOMEN: Soft, nontender. No guarding, no rebound. No masses appreciated. PELVIC: Declined. EXTREMITIES: Normal range of motion, no pitting or edema. No clubbing or cyanosis. NEUROLOGICAL: Cranial nerves II through XII grossly intact. Normal speech, normal gait. PSYCH: Normal mood, normal affect. SKIN: Warm, Dry, normal turgor, no rashes or lesions noted. Course - Re-evaluation Re-evalutation: 09/08/19 nontoxic, well-appearing 24-year-old female presents for multiple complaints. Pharynx is clear with no exudates or tonsillar hypertrophy. No trismus. No muffled voice. Uvula midline without edema. No obvious GEODETIC ADVISOR. Abdomen soft nontender. Pelvic declined. PE is otherwise unremarkable. Most consistent with viral upper respiratory infection. Strep test was negative. Lab work including RhoGam, beta-hCG, and UA were added on. Ultrasound of the pelvis was also ordered. 09/08/19 07:09 US neg. beta hcg negative. Labs show anemia but this is improved/baseline. UA neg for UTI. Will treat for viral URI with symptomatic re lief and give pt follow up with PCP with return precautions. All questions/concerns addressed prior to discharge. - Vital Signs Vital signs: Temp Pulse Resp BP Pulse Ox 97.7 F 76 20 112/63 100 09/08/19 07:21 09/08/19 07:21 09/08/19 07:21 09/08/19 07:21 09/08/19 07:21 - Laboratory Result Diagrams: 09/08/19 05:15 09/08/19 05:15 Laboratory results interpreted by me: 09/08/19 09/08/19 09/08/19 05:15 05:15 05:55 Hgb 10.8 L Hct 33.7 L MCV 72 L MCH 23.1 L RDW 17.9 H Chloride 108 H Creatinine 0.47 L Urine Urobilinogen 4.0 H Leukocyte Esterase Rfl SMALL H Urine Ascorbic Acid 20 H Discharge - Discharge Clinical Impression: Viral URI with cough, Not currently Condition: Stable Disposition: HOME, SELF-CARE Instructions: Upper Respiratory Illness ([facility]), Viral Syndrome ([facility]) Additional Instructions: You most likely have a viral infection, this does not require antibiotics. Your blood test does not show you are . Your ultrasound is normal and shows no either. Please take medications as prescribed. Follow up with your primary care doctor or one of the clinics listed in 3-5 days. Return to ER for any worsening symptoms including coughing up blood, fever, inability to open mouth, neck stiffness/pain, chest pain, nausea/vomiting, abdominal pain, or any other symptoms that are concerning to you. Prescriptions: Benzonatate [Tessalon Perles 100 mg Capsule] 100 mg PO Q8HP PRN #40 capsule PRN Reason: Fexofenadine/Pseudoephedrine [Soraida-D 24 Hour Tablet] 1 each PO DAILY #20 tab.er.24h Fluticasone Propionate [Flonase Nasal [place] 50 Mcg/[place] 16 gm] 2 sprays NASL Q12 #1 inhaler Forms: Return to Work Referrals: YULY PATEL MD [ACTIVE STAFF] - Follow up in 3-5 days [facility] [Provider Group] - Follow up in 3-5 days
[2019-09-08 05:33] LABS: ABSOLUTE EOSINOPHILS # (AUTO) 0.1 10^3/uL (0.0-0.6); ABSOLUTE LYMPHOCYTES (AUTO) 2.3 10^3/uL (0.5-4.7); ABSOLUTE MONOCYTES (AUTO) 0.8 10^3/uL (0.1-1.4); ABSOLUTE NEUT (AUTO) 6.1 10^3/uL (1.7-8.2); BASOPHILS % (AUTO) 0.4 % (0-2); EOSINOPHILS % (AUTO) 1.2 % (0-6); HEMATOCRIT 33.7 % (36.0-47.0); HEMOGLOBIN 10.8 g/dL (12.0-15.5); LYMPHOCYTES % (AUTO) 24.5 % (13-45); MEAN CORPUSCULAR HEMOGLOBIN 23.1 pg (27.0-33.4); MEAN CORPUSCULAR VOLUME 72 fl (80-97); MONOCYTES % (AUTO) 8.3 % (3-13); PLATELET COUNT 235 10^3/uL (150-450); RED BLOOD COUNT 4.68 10^6/uL (3.72-5.28); RED CELL DISTRIBUTION WIDTH 17.9 % (11.5-14.0); SEGMENTED NEUTROPHILS % (AUTO) 65.6 % (42-78); TOTAL CELLS COUNTED % (AUTO) 100 %; WHITE BLOOD COUNT 9.3 10^3/uL (4.0-10.5)
[2019-09-08 05:50] LABS: ALBUMIN 3.7 g/dL (3.5-5.0); ALKALINE PHOSPHATASE 80 U/L (38-126); ANION GAP 6 (5-19); ASPARTATE AMINO TRANSFERASE 21 U/L (14-36); BILIRUBIN,DIRECT 0.1 mg/dL (0.0-0.4); BILIRUBIN,TOTAL 0.3 mg/dL (0.2-1.3); BLOOD UREA NITROGEN 14 mg/dL (7-20); CALCIUM 9.2 mg/dL (8.4-10.2); CARBON DIOXIDE 24 mmol/L (22-30); CHLORIDE 108 mmol/L (98-107); GLUCOSE 91 mg/dL (75-110); POTASSIUM 3.9 mmol/L (3.6-5.0)
[2019-09-08 06:36] LABS: APPEARANCE,URINE SLIGHTLY-CLOUDY; BILIRUBIN,URINE NEGATIVE (NEGATIVE); COLOR,URINE YELLOW; GLUCOSE, URINE NEGATIVE (NEGATIVE); KETONES,URINE NEGATIVE (NEGATIVE); PROTEIN,URINE NEGATIVE (NEGATIVE); URINE SPECIFIC GRAVITY 1.023
[2019-09-08 06:41] LABS: RBC,URINE NONE SEEN /HPF
[2019-09-08 06:57] VITALS: BP 112/63
[2019-09-08] MEDS ORDERED: KETOROLAC TROMETHAMINE 60 MG/2 ML SDV IM ONE (07:03)
--- NOTE | 2019-09-08 07:06 | RADIOLOGY REPORT (SQ) ---
Ultrasound OB transvaginal on 09/08/2019 at 5:28 AM Clinical indications: , vaginal bleeding COMPARISON: None this FINDINGS: Multiple sonographic images are obtained throughout the pelvis by transvaginal approach, both transverse and sagittal images are obtained. Uterus measures approximately 8.2 x 3.7 x 5.2 cm. The right ovary measures approximately 2.6 x 1.4 x 1.5 cm. Flow is demonstrated in the right ovary. The left ovary measures approximately 2.6 x 1.3 x 1.1 cm. Flow is demonstrated in the left ovary. No adnexal mass or fluid collection is noted. Very small amount of free fluid is noted in the pelvis that is likely physiologic. Endometrial stripe measures 1.1 cm. No intrauterine is identified. This needs correlation with the patient's beta hCG level. IMPRESSION: Essentially unremarkable examination without intrauterine identified. If the patient's beta-hCG is greater than 1000 then an intrauterine should have been identified and findings could be related to completed or ectopic that is not visualized. If the patient's beta-hCG is less than 1000 then an intrauterine would not have to be identified and the findings maybe related to an early intrauterine or early ectopic that is not visualized. Recommend clinical followup.
== END 2019-09-08 07:21 | disposition home or self-care (01) ==
LOC: ER 02:54
DX: J06.9 Acute upper respiratory infection, unspecified (principal); B97.89 Other viral agents as the cause of diseases classified elsewhere; J02.9 Acute pharyngitis, unspecified; R05 Cough; J34.89 Other specified disorders of nose and nasal sinuses; R10.30 Lower abdominal pain, unspecified; R11.0 Nausea; F17.200 Nicotine dependence, unspecified, uncomplicated; F12.10 Cannabis abuse, uncomplicated; J45.909 Unspecified asthma, uncomplicated; N93.9 Abnormal uterine and vaginal bleeding, unspecified; D64.9 Anemia, unspecified
CPT/HCPCS: 99283; 86900; 86901; 36415; 87070; 87880; 84702; 85025; 80053; 81001; 76817; 93976; J3490